=== PATIENT | female | born 1950 | race Two or more races ===

== ENCOUNTER → 2018-08-15 12:46 | Outpatient (CLI) | payer SELFPAY ==
[2018-08-15 13:03] VITALS: BP 150/66; PULSE 63; RESP 18; O2SAT 99; BMI 31.8
--- NOTE | 2018-08-15 13:16 | CT_ITS ---
STUDY: CT CHEST WITHOUT CONTRAST REASON FOR EXAM: Female, 68 years old. Element cholesterol, coronary calcium scoring, over read. RADIATION DOSAGE (If Supplied By Facility): CTDIvol = ( 12.19 ) mGy, DLP = ( 195.04 ) mGycm TECHNIQUE: Transaxial imaging was performed without the administration of intravenous contrast material. Individualized dose optimization techniques were used for this CT. COMPARISON: None. FINDINGS: Upper abdomen, body wall soft tissues, osseous structures exhibit no acute process. Chronic calcified lymph nodes of the mediastinum and fernanda are consistent with old granulomatous disease and concordant with small calcifications seen in the liver and spleen. A few calcified pulmonary nodules are present also consistent with old granulomatous disease. There are no suspicious pulmonary nodules. Normal airways. The heart is normal in size without pericardial effusion. Nondilated aorta. Nondilated central pulmonary arteries. The right and left coronary arteries each emerge from the appropriate coronary sinus with right coronary dominance to the PDA. RCA, no visible calcified plaque proximally, small focus in the middle segment. None distally. Left main, no plaque. Circumflex, no plaque. Marginal arteries no plaque. LAD, proximal to mid, multifocal calcified plaque. CT/Limited Chest CT w/CCTA IMPRESSION: No acute cardiopulmonary process. Normal coronary artery origins and branching anatomy. Small focus of calcified plaque mid RCA. Next line moderate plaque proximal to mid LAD. Coronary calcium Agatston score and recommendations are provided under separate cover with cardiology. Electronically Signed: Jordan Samano MD at 19:06 EST Tel , Service support ,
--- NOTE | 2018-08-16 06:50 | CA.SCORE ---
Calcium Scoring Date of Study:: 08/15/18 Coronary Calcium Scoring: Coronary calcium scoring. High-resolution computed tomographic imaging of the chest was performed on 08/15/2018 with particular attention paid to the coronary arteries. Images from the examination were analyzed for the presence and extent of coronary artery calcification using coronary calcification quantification software. The patient tolerated the procedure well there were no complications. The results of the coronary calcification analysis are provided below. Left main score is 0. Left anterior descending artery score 94.6. Left circumflex artery score 0. Right coronary artery score 3. Total Agagston score 97.8. The above places the patient between these 50th and 75th percentile ranking. This is suggestive of mild plaque burden This suggest likely mild or minimal coronary artery stenosis.
--- OUTSIDE RECORDS SUMMARY | 2018-11-16 17:54 | XMS RPT_ITS | Continuity of Care Document ---
:1950 Author Organization [facility] Address [facility] [address] [place] [address] Phone Care Team Providers Name Role Phone Rowan Mott MD Unavailable Hearing Services-- Cristy Colindres Unavailable Dr. Ehsan Recinos Unavailable [facility] Unavailable Alexander Joy Tawny Unavailable VALORIE Porras Unavailable Unavailable Unavailable Unavailable Problems Name Dates Details Abnormal cystoscopy (R39.9, 796.9) Comments: see Dr. Kruger and inflammed bladder and will rescope Dr. Coughlin 2-17 good cytology sent and recheck in 1 year. i told pt will do CT scna and send to ced she does not want to follow up if abn ormal will follow up with him Status: Active Abortions/Miscarriages Comments: 1 Status: Active Acute non-recurrent maxillary sinusitis (J01.00, 461.0) Status: Active Adult hypothyroidism (E03.9, 244.9) Status: Active Allergic rhinitis due to pollen, unspecified seasonality (J30.1, 477.0) Status: Active Allergic rhinitis, mild (J30.9, 477.9) Status: Active Anserine bursitis (M70.50, 726.61) Comments: left knee better than was talk about rest ice nsaids and if not better inject. Status: Active Bilateral hearing loss, unspecified hearing loss type (H91.93, 389.9) Comments: told in past by ENT that can be result of surgery and had when work up for vertigop Status: Active Bilateral renal cysts (N28.1, 753.10) Status: Active BMI 31.0-31.9,adult (Z68.31, V85.31) Status: Active BMI 32.0-32.9,adult (Z68.32, V85.32) Status: Active BMI 33.0-33.9,adult (Z68.33, V85.33) Comments: 33.0 Status: Active Bunion, right (M21.611, 727.1) Status: Active Current nonsmoker (Renamed from Current non-smoker) (Z78.9, V49.89) Status: Active Deliveries (Parity) Comments: 2 Status: Active Encounter for routine adult medical exam with abnormal findings (Z00.01, V70.0) Comments: 04-13 AMP 2-- [facility] exam: A1C=7.3%, BMI=31.4, mammogram=2017, BD=2-2017 great,immunizations are up to date, 6 CIT=, PHQ-9=4 (minimal) hep c screening=negative, per old records pap an d HPV 2016 negative, had total hysterectomy BSO, eyduxxnygke=7115 (normal), Burn's scale=22 (mild depression) see dentist and eye DrRaquel yearly Status: Active Epidermal cyst (L72.0, 706.2) Status: Active Fatigue due to exposure, subsequent encounter (T73.2XXD, V58.89) Status: Active Fatty liver (K76.0, 571.8) Status: Active History of asthma (Z87.09, V12.69) Comments: had bad asthma in [place] in winter and cold not have now. when move [place] better. was on singulair inhalers etc. Status: Active History of breast cancer in female (Z85.3, V10.3) Comments: 2 sisters needs genetic counselinand BRCA testing. lloyd end. Status: Active History of Graves' disease (Z86.39, V12.29) Status: Active Incontinence of urine (R32, 788.30) Comments: really think related to estrogen def. the estrogen cream work the but the detrol not help. right now not bad caffiene decrease help alot. right now stress Status: Active Memory loss (R41.3, 780.93) Comments: 6CIT= Status: Active Menopausal state (N95.1, 627.2) Status: Active Mild depression (F32.0, 311) Comments: ramirez 22 she notice in irriitablity. low stress tolerance. n past used zoloft andhelp. some seasonal came from [facility] and now cloudy all time. [place] chore. ta lkabout weight loss. wellbutrin helping irritable, sleep better, mood better, not as hungry Status: Active Mixed hyperlipidemia (E78.2, 272.2) Comments: will recheck Status: Active Need for prophylactic vaccination and inoculation against influenza (Renamed from Need for immunization against influenza) (Z23, V04.81) Status: Active Obesity (BMI 30-39.9) (278.00) Comments: likie 185. was as high as 240. lost since on wellbutrin. on trulicity loosing more Status: Active Other hypoparathyroidism (E20.8, 252.1) Status: Active Paresthesia of right foot (R20.2, 782.0) Comments: worse on right some on left. notice now not as much pain in feet ? why. Status: Active Postmenopausal (Renamed from Postmenopausal status) (Z78.0, V49.81) Status: Active Pregnancies () Comments: 3 Status: Active Renal insufficiency (N28.9, 593.9) Status: Active Restless leg (G25.81, 333.94) Comments: think related to stress ABN good not neuropatny signs and symptoms so will watch talk about ativan prn at night. 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 last MRI good 2013. will need further surgery for collapse of the septum bone. at this oint she is holding off. 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 nose implant Status: Active Syncope (R55, 780.2) Comments: multiple episodes, hospitalized twice for it hx. CT scan and no tumor Status: Active Type II diabetes mellitus (E11.9, 250.00) Comments: see Dr. Amaro endocrine and will stop. metformin bid. doing well on trulicity took awahile some constipation but working well.fall 17 eye exam Status: Active Vestibular migraine (G43.109, 346.00) Comments: present with vertigo. last time related to allergies when act up. had 5 episodes since 2004. work up in [facility]. not ear or menieries. MRI negative of brain. ENG negative. next step was neurology but better so not go. got [employer] shot and gone spring. Status: Active Vitamin B12 deficiency (E53.8, 266.2) Comments: was high so stoppe din past low Status: Active Medications Name Dates Details Aspirin 81 MG Oral Tablet Delayed Release Active 1 qd (81 MG) Biotin 2500 MCG Oral Capsule Active 1 every other day (2500 MCG) Calcitriol 0.25 MCG Oral Capsule uad Capsule 2 in am 1 pm for 0 days Quantity: 270 {Capsule} Refills: 3 Ordered:05-Mar-2018 Rowan Mott MD, MD, Dana M Start : 05-Mar-2018 Active Citracal Plus Oral Tablet 1 bid Active Fish Oil 1200 MG Oral Capsule 1 bid (1200 MG) Active Fosinopril Sodium 10 MG Oral Tablet 1 (one) Tablet in am for 0 days Quantity: 90 {Tablet} Refills: 3 Ordered:29-Dec-2017 Rowan Mott MD, MD, Dana M Start : 29-Dec-2017 Active Levothyroxine Sodium 112 MCG Oral Tablet 1 Tablet qd for 0 days Quantity: 90 {Tablet} Refills: 3 Ordered:08-Jan-2018 Rowan Mott MD, MD, Dana M Start : 08-Jan-2018 Active MetFORMIN HCl 500 MG Oral Tablet 1 Tablet bid for 0 days Quantity: 180 {Tablet} Refills: 3 Ordered:02-Oct-2017 Rowan Mott MD, MD, Dana M Start : 02-Oct-2017 Active Metoprolol Tartrate 50 MG Oral Tablet uad Tablet one at 6pm night before test and one @ 6am day of test for 0 days Quantity: 2 {Tablet} Refills: 0 Ordered:14-Aug-2018 Rowan Mott MD, MD, Dana M Start : 14-Aug-2018 Active Simvastatin 20 MG Oral Tablet 1 Tablet qd for 0 days Quantity: 90 {Tablet} Refills: 3 Ordered:12-Dec-2017 Rowan Mott MD, MD, Dana M Start : 12-Dec-2017 Active Tobramycin-Dexamethasone 0.3-0.1 % Ophthalmic Suspension 1 (one) Suspension Suspension 2 dropps in right eye every 6 hours. for 0 days Quantity: 1 {Bottle} Refills: 0 Ordered:02-Oct-2017 Rowan Mott MD, MD, Dana M Start : 02-Oct-2017 Active Trulicity 1.5 MG/0.5ML Subcutaneous Solution Pen-injector 1 (one) Milligram Milligram SC weekly for 90 days Refills: 3 Ordered:12-Dec-2017 VALORIE Porras Start : 12-Dec-2017 Active Vitamin B-12 1000 MCG Oral Tablet 1 exery other day (1000 MCG) Active Wellbutrin XL 150 MG Oral Tablet Extended Release 24 Hour 1 (one) Tablet ER 24HR in am for 0 days Quantity: 90 {Tablet} Refills: 3 Ordered:29-Dec-2017 Rowan Mott MD, MD, Dana M Start : 29-Dec-2017 Active Xyzal Allergy 24HR 5 MG Oral Tablet 1 (one) Tablet Tablet in am for 0 days Quantity: 30 {Tablet} Refills: 5 Ordered:25-May-2018 VALORIE Porras Start : 25-May-2018 Active Augmentin 875-125 MG Oral Tablet 1 (one) Tablet bid for 0 days Quantity: 20 {Tablet} Refills: 0 Ordered:25-May-2018 Nataliya Dixon Start : 10-Apr-2018 End : 25-May-2018 Inactive Ciprofloxacin HCl 500 MG Oral Tablet 1 (one) Tablet bid for 0 days Quantity: 28 {Tablet} Refills: 0 Ordered:12-Mar-2018 VALORIE Porras Start : 13-Feb-2018 End : 12-Mar-2018 Inactive MetFORMIN HCl 500 MG Oral Tablet 1 (one) Tablet bid with meals for 0 days Quantity: 60 {Tablet} Refills: 6 Ordered:13-Feb-2018 VALORIE Porras Start : 12-Dec-2017 End : 13-Feb-2018 Inactive Pyridium 200 MG Oral Tablet 1 (one) Tablet Tablet bid for 0 days Quantity: 20 {Tablet} Refills: 0 Ordered:02-Oct-2017 VALORIE Porras Start : 03-Apr-2017 End : 02-Oct-2017 Inactive Trulicity 0.75 MG/0.5ML Subcutaneous Solution Pen-injector 1 (one) Milligram SC weekly for 2 weeks for 0 days Quantity: 2 Kit Refills: 0 Ordered:13-Feb-2018 VALROIE Porras Start : 12-Dec-2017 End : 13-Feb-2018 Inactive Glimepiride 1 MG Oral Tablet 1 Tablet qhs for 0 days Quantity: 90 {Tablet} Refills: 3 Ordered:12-Dec-2016 Rowan Mott MD, MD, Dana M Start : 12-Dec-2016 End : 12-Dec-2016 Discontinued Janumet 50-500 MG Oral Tablet 1 Tablet bid for 0 days Quantity: 180 {Tablet} Refills: 3 Ordered:12-Dec-2017 [facility], Rowan Recio MD Start : 12-Dec-2017 End : 12-Dec-2017 Discontinued Singulair 10 MG Oral Tablet 1 (one) Tablet in am for 0 days Quantity: 30 {Tablet} Refills: 5 Ordered:14-Jun-2018 Rowan Mott MD, MD, Dana M Start : 14-Jun-2018 End : 14-Jun-2018 Discontinued Allergies and Adverse Reactions Name Dates Details Inapsine *ANTIANXIETY AGENTS* (Allergy) Status: Active Naprosyn *ANALGESICS - ANTI-INFLAMMATORY* (Allergy) Status: Active SulfADIAZINE *Sulfonamides (Allergy) Status: Active Past Medical History Name Dates Details Abnormal blood creatinine level (R79.9, 790.99) Status: Resolved as of 12-Mar-2018 Actinic keratosis (Renamed from Keratosis, actinic) (L57.0, 702.0) Comments: on right spiritism area Status: Resolved as of 12-Dec-2017 Acute cystitis without hematuria (N30.00, 595.0) Status: Inactive as of 14-Nov-2016 Adnexal mass (N94.9, 625.8) Comments: Dr forbes [facility] good. Status: Resolved as of 12-Dec-2017 Dysuria (R30.0, 788.1) Status: Resolved as of 12-Mar-2018 Elevated uric acid in blood (E79.0, 790.6) Comments: better now Status: Resolved as of 02-Oct-2017 Encounter for hepatitis C virus screening test for high risk patient (Z11.59, V73.89) Status: Resolved as of 18-Sep-2017 Flank pain (R10.9, 789.09) Comments: left side beter now CT scan 09-13 showed stone. had bout in 04-13 adn better now. told alot water. then fall 2016 back gain. is to follow up with urology and will recheck CT scan she wants to wait until after trip in october. better than was so wants to hold off. if worsen will get right away. will get ctscan when get home and not follow up with uro unless abnormla. Status: Resolved as of 12-Dec-2017 Graves disease (E05.00, 242.00) Comments: developed goiter, then thyroidectomy Status: Inactive as of 14-Nov-2016 INFLAMED SEBORRHEIC KERATOSIS (L82.0, 702.11) Status: Resolved as of 18-Sep-2017 Redness of eye, right (H57.89, 379.93) Comments: ? scratch sclera. ? allergies. not seem like glaucoma not have corneal abrasion. no signs and symptoms of herpes. nothing seen in eye with rosen lamp Status: Resolved as of 18-Sep-2017 Screening mammogram, encounter for (Z12.31, V76.12) Status: Resolved as of 18-Sep-2017 UTI (urinary tract infection) (N39.0, 599.0) Status: Resolved as of 12-Dec-2017 Procedures Procedure Dates Details Annual Eye Exam Completed Comments: wears glasses May 2016 Bone Density Study Completed Comments: 2014 Cholecystectomy Completed Colonoscopy, Screening Completed Comments: 2014 Hysterectomy; Total Completed Comments: 1989 supposed to be a total, but ovary later found with a growth on it (June 2016), removed ovary with tumor and was benign Mammogram, Screening Completed Comments: July 2015 Nose transplant Completed Comments: 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 cardiac disease, yellow jaundice Status: Active Maternal Grandfather Comments: asthma, CHF Status: Active Maternal Grandmother Comments: ?DM, stroke, CHF Status: Active Mother Comments: Kidney Cancer, Type II diabetes, HTN, hx. heart valve replacement, macular degeneration, sick sinus syndrome (still living in her 90's) Status: Active Paternal Grandfather Comments: had TB Status: Active Paternal Grandmother Comments: thyroid disease, Rickett's, bone problems Status: Active Sister 1 Comments: healthy Status: Active Sister 2 Comments: Type II diabetes, HTN, multiple allergies Status: Active Sister 3 Comments: former Ms. Mak Gluten allergy Status: Active Sister 4 Comments: Breast cancer Status: Active Sister 5 Comments: numerous joint problems (bad knees/back) Breast Cancer Status: Active Social History Name Dates Details Alcohol Use: Occasional alcohol use. 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 Comments: walk daily about 20 minutes. Status: Active Living Situation Comments: lives with spouse Christian-important Status: Active No Drug Use Status: Active Tobacco Use: Never smoker. Status: Active Smoking Status Name Dates Details Never smoker Vital Signs Date Test Result Details :28 Temperature 97.9 f Comments: Method: Temporal Pulse 74 /min Comments: Pattern: Regular Respiration Rate 20 /min Comments: Pattern: Unlabored O2 SAT 98 % Comments: Room air BP Systolic 126 mm[Hg] Comments: Patient Position: Sitting; Cuff Location: Left Arm; Cuff Size: Standard BP Diastolic 76 mm[Hg] Comments: Patient Position: Sitting; Cuff Location: Left Arm; Cuff Size: Standard Weight 199 lb Height 65.5 in Body Mass Index Calculated 32.61 kg/m2 Body Surface Area Calculated 1.99 m2 :55 Temperature 98.4 f Comments: Method: Temporal Pulse 80 /min Comments: Pattern: Regular Respiration Rate 16 /min Comments: Pattern: Unlabored O2 SAT 98 % Comments: Room air BP Systolic 122 mm[Hg] Comments: Patient Position: Sitting; Cuff Location: Left Arm; Cuff Size: Standard BP Diastolic 78 mm[Hg] Comments: Patient Position: Sitting; Cuff Location: Left Arm; Cuff Size: Standard Weight 193 lb Height 65.5 in Body Mass Index Calculated 31.63 kg/m2 Body Surface Area Calculated 1.96 m2 :58 Temperature 97.6 f Comments: Method: Temporal Pulse 74 /min Comments: Pattern: Regular Respiration Rate 20 /min Comments: Pattern: Unlabored O2 SAT 98 % Comments: Room air BP Systolic 124 mm[Hg] Comments: Patient Position: Sitting; Cuff Location: Left Arm; Cuff Size: Standard BP Diastolic 78 mm[Hg] Comments: Patient Position: Sitting; Cuff Location: Left Arm; Cuff Size: Standard Weight 193 lb Height 65.5 in Body Mass Index Calculated 31.63 kg/m2 Body Surface Area Calculated 1.96 m2 :07 Temperature 97.9 f Comments: Method: Temporal Pulse 78 /min Comments: Pattern: Regular Respiration Rate 18 /min Comments: Pattern: Unlabored O2 SAT 98 % Comments: Room air BP Systolic 120 mm[Hg] Comments: Patient Position: Sitting; Cuff Location: Left Arm; Cuff Size: Large BP Diastolic 80 mm[Hg] Comments: Patient Position: Sitting; Cuff Location: Left Arm; Cuff Size: Large Weight 204.05 lb Height 65.5 in Body Mass Index Calculated 33.44 kg/m2 Body Surface Area Calculated 2.01 m2 :30 Temperature 97.8 f Comments: Method: Temporal Pulse 78 /min Comments: Pattern: Regular Respiration Rate 20 /min Comments: Pattern: Unlabored O2 SAT 97 % Comments: Room air BP Systolic 118 mm[Hg] Comments: Patient Position: Sitting; Cuff Location: Left Arm; Cuff Size: Standard BP Diastolic 68 mm[Hg] Comments: Patient Position: Sitting; Cuff Location: Left Arm; Cuff Size: Standard Weight 191.025 lb Height 65.5 in Body Mass Index Calculated 31.3 kg/m2 Body Surface Area Calculated 1.95 m2 :57 Pulse 86 /min Comments: Pattern: Regular Respiration Rate 18 /min Comments: Pattern: Unlabored O2 SAT 98 % Comments: Room air BP Systolic 120 mm[Hg] Comments: Patient Position: Sitting; Cuff Location: Left Arm; Cuff Size: Standard BP Diastolic 62 mm[Hg] Comments: Patient Position: Sitting; Cuff Location: Left Arm; Cuff Size: Standard Weight 200 lb Height 66 in Body Mass Index Calculated 32.28 kg/m2 Body Surface Area Calculated 2 m2 :47 Comments: vision in right eye 20/50 without glasses and 20/20 with glaseses Temperature 97.5 f Comments: Method: Temporal Pulse 80 /min Comments: Pattern: Regular Respiration Rate 20 /min Comments: Pattern: Unlabored O2 SAT 97 % Comments: Room air BP Systolic 122 mm[Hg] Comments: Patient Position: Sitting; Cuff Location: Left Arm; Cuff Size: Large BP Diastolic 80 mm[Hg] Comments: Patient Position: Sitting; Cuff Location: Left Arm; Cuff Size: Large Weight 205 lb Height 66 in Body Mass Index Calculated 33.09 kg/m2 Body Surface Area Calculated 2.02 m2 :04 Temperature 97.9 f Comments: Method: Temporal Pulse 80 /min Comments: Pattern: Regular Respiration Rate 20 /min Comments: Pattern: Unlabored O2 SAT 98 % Comments: Room air BP Systolic 120 mm[Hg] Comments: Patient Position: Sitting; Cuff Location: Left Arm; Cuff Size: Large BP Diastolic 80 mm[Hg] Comments: Patient Position: Sitting; Cuff Location: Left Arm; Cuff Size: Large Weight 205 lb Height 66 in Body Mass Index Calculated 33.09 kg/m2 Body Surface Area Calculated 2.02 m2 :00 Temperature 97.9 f Comments: Method: Temporal Pulse 72 /min Comments: Pattern: Regular Respiration Rate 20 /min Comments: Pattern: Unlabored O2 SAT 99 % Comments: Room air BP Systolic 120 mm[Hg] Comments: Patient Position: Sitting; Cuff Location: Left Arm; Cuff Size: Large BP Diastolic 78 mm[Hg] Comments: Patient Position: Sitting; Cuff Location: Left Arm; Cuff Size: Large Weight 204 lb Height 66 in Body Mass Index Calculated 32.93 kg/m2 Body Surface Area Calculated 2.02 m2 :31 Temperature 97.6 f Comments: Method: Temporal Pulse 64 /min Comments: Pattern: Regular Respiration Rate 20 /min Comments: Pattern: Unlabored O2 SAT 98 % Comments: Room air BP Systolic 136 mm[Hg] Comments: Patient Position: Sitting; Cuff Location: Left Arm; Cuff Size: Large BP Diastolic 78 mm[Hg] Comments: Patient Position: Sitting; Cuff Location: Left Arm; Cuff Size: Large Weight 208 lb Height 66 in Body Mass Index Calculated 33.57 kg/m2 Body Surface Area Calculated 2.03 m2 :04 Temperature 97.6 f Comments: Method: Temporal Pulse 78 /min Comments: Pattern: Regular Respiration Rate 20 /min Comments: Pattern: Unlabored O2 SAT 98 % Comments: Room air BP Systolic 142 mm[Hg] Comments: Patient Position: Sitting; Cuff Location: Left Arm; Cuff Size: Standard BP Diastolic 84 mm[Hg] Comments: Patient Position: Sitting; Cuff Location: Left Arm; Cuff Size: Standard Weight 202 lb Height 66 in Body Mass Index Calculated 32.6 kg/m2 Body Surface Area Calculated 2.01 m2 Results Date Description Value Details [id number]-[id number] HgA1C , Office (71695) HgA1C , Office 6.6 % (Normal) Range: 4.6 - 7.1 54-Vks-613226:36 EBV Panel (71541) Comments: PATIENT NOT FASTINGPERFORMED BY: [facility] [id number] Interpretation: SPRCS (Normal) Comments: EBV Interpretation Chart . Interpretation EBV-IgM EA(D)-IgG VCA-IgG EBNA-IgG . EBV Seronegative - - - - Early Phase + - - - Acute Primary + +or- + - Infection Convalescence/Past - +or- + + Infection Reactivated +or- + + + Infection + Antibody Present - Antibody Absent EBV Nuclear Antigen Ab, IgG >600.0 U/mL (Abnormal) Range: 0.0-17.9 Comments: Negative <18.0 Equivocal 18.0 - 21.9 Positive >21.9 EBV Ab VCA, IgG 120.0 U/mL (Abnormal) Range: 0.0-17.9 Comments: Negative <18.0 Equivocal 18.0 - 21.9 Positive >21.9 EBV Early Antigen Ab, IgG <9.0 U/mL (Normal) Range: 0.0-8.9 Comments: Negative < 9.0 Equivocal 9.0 - 10.9 Positive >10.9 EBV Ab VCA, IgM <36.0 U/mL (Normal) Range: 0.0-35.9 Comments: Negative <36.0 Equivocal 36.0 - 43.9 Positive >43.9 :36 CBC (AUTO) ([id number]) Comments: PATIENT NOT FASTINGPERFORMED BY: [facility] [place] [id number] Platelets 228 {x10E3/uL} (Normal) Range: 150-379 RDW 15.7 % (Abnormal) Range: 12.3-15.4 MCHC 33.7 g/dL (Normal) Range: 31.5-35.7 MCH 28.8 pg (Normal) Range: 26.6-33.0 MCV 86 fL (Normal) Range: 79-97 Hematocrit 35.3 % (Normal) Range: 34.0-46.6 Hemoglobin 11.9 g/dL (Normal) Range: 11.1-15.9 RBC 4.13 {x10E6/uL} (Normal) Range: 3.77-5.28 WBC 7.3 {x10E3/uL} (Normal) Range: 3.4-10.8 22-Fls-244442:36 METABOLIC PANEL, COMPREHENSIVE Comments: PATIENT NOT FASTINGPERFORMED BY: [id number] [facility] [id number] ([id number]) ALT (SGPT) 34 [iU]/L (Abnormal) Range: 0-32 AST (SGOT) 41 [iU]/L (Abnormal) Range: 0-40 Alkaline Phosphatase 57 [iU]/L (Normal) Range: 39-117 Bilirubin, Total 0.3 mg/dL (Normal) Range: 0.0-1.2 A/G Ratio 1.9 (Normal) Range: 1.2-2.2 Globulin, Total 2.3 g/dL (Normal) Range: 1.5-4.5 Albumin 4.3 g/dL (Normal) Range: 3.6-4.8 Protein, Total 6.6 g/dL (Normal) Range: 6.0-8.5 Calcium 9.3 mg/dL (Normal) Range: 8.7-10.3 Carbon Dioxide, Total 25 mmol/L (Normal) Range: 20-29 Chloride 103 mmol/L (Normal) Range: 96-106 Potassium 3.9 mmol/L (Normal) Range: 3.5-5.2 Sodium 145 mmol/L (Abnormal) Range: 134-144 BUN/Creatinine Ratio 15 (Normal) Range: 12-28 eGFR If Africn Am 56 mL/min/1.73 (Abnormal) eGFR If NonAfricn Am 49 mL/min/1.73 (Abnormal) Creatinine 1.15 mg/dL (Abnormal) Range: 0.57-1.00 BUN 17 mg/dL (Normal) Range: 8-27 Glucose 130 mg/dL (Abnormal) Range: 65-99 47-Sam-010806:36 Folate (39726) Comments: PATIENT NOT FASTINGPERFORMED BY: [facility] [id number] [facility] [place] [id number] Folate (Folic Acid), Serum >20.0 ng/mL (Normal) Comments: A serum folate concentration of less than 3.1 ng/mL isconsidered to represent clinical deficiency. [id number] VITAMIN B-12 (CYANOCOBALAMIN) Comments: PATIENT NOT FASTINGPERFORMED BY: [facility] [id number] [facility] [place] [id number] ([id number]) Vitamin B12 >2000 pg/mL (Abnormal) Range: 232-1245 58-Dbw-313665:36 SED RATE ERYTHROCYTE (39070) Comments: PATIENT NOT FASTINGPERFORMED BY: [facility] [id number] [facility] [id number] Sedimentation Rate-Westergren 2 mm/h (Normal) Range: 0-40 56-Lwk-322087:36 TSH (85577) Comments: PATIENT NOT FASTINGPERFORMED BY: [facility] [id number] [facility] [id number] TSH 1.230 {uIU/mL} (Normal) Range: 0.450-4.500 77-Ymk-880574:34 HgA1C , Office (32315) HgA1C , Office 6.7 % (Normal) Range: 4.6 - 7.1 28-Mdu-171218:40 Microscopic Examination Comments: PATIENT NOT FASTINGPERFORMED BY: [facility] [id number] [facility] [place] [id number] Bacteria Few (Normal) Mucus Threads Present (Normal) Cast Type Hyaline casts (Normal) Casts Present {/lpf} (Abnormal) Epithelial Cells (non renal) 0-10 {/hpf} (Normal) Range: 0 - 10 RBC None seen {/hpf} (Normal) Range: 0 - 2 WBC 0-5 {/hpf} (Normal) Range: 0 - 5 88-Kfg-[id number]:50 Urinalysis, Office (07640) UA - LEUKOCYTE ESTERASE Trace (Normal) UA - NITRITE Negative (Normal) URINE UROBILINGN LINDSEY TIMED 2 mg/dL (Normal) UA - PROTEIN Negative mg/dL (Normal) UA - PH 8.0 (Normal) UA - BLOOD Hemolyzed Trace (Normal) UA - SPECIFIC GRAVITY 1.015 (Normal) UA - KETONES Negative mg/dL (Normal) UA - BILIRUBIN Negative (Normal) UA - GLUCOSE Negative (Normal) 86-Yma-[id number]:40 URINE ELIN CULTURE-IDENTIFICATN Comments: PATIENT NOT FASTINGPERFORMED BY: [email or web address] [id number] ([id number]) Result 1 MUG (Normal) Comments: Mixed urogenital flora1,000 Colonies/mL Urine Culture,Comprehensive Final report (Normal) 52-Hem-682546:40 URINALYSIS (29042) Comments: PATIENT NOT FASTINGPERFORMED BY: [email or web address] [facility] [id number] Information: SRC: Microscopic Examination See below: (Normal) Comments: Microscopic was indicated and was performed. Nitrite, Urine Negative (Normal) Urobilinogen,Semi-Qn 0.2 mg/dL (Normal) Range: 0.2-1.0 Bilirubin Negative (Normal) Occult Blood Negative (Normal) Ketones Negative (Normal) Glucose Negative (Normal) Protein Negative (Normal) WBC Esterase Trace (Abnormal) Appearance Clear (Normal) Urine-Color Yellow (Normal) pH 8.0 (Abnormal) Range: 5.0-7.5 Specific Carroll 1.008 (Normal) Range: 1.005-1.030 63-Nir-881741:21 URINE ELIN CULTURE-IDENTIFICATN Comments: PATIENT NOT FASTINGPERFORMED BY: [employer] Besrmw6462 [facility] [id number] Information: SRC: (74214) Result 1 MUG (Normal) Comments: Mixed urogenital flora10,000-25,000 colony forming units per mL Urine Final report (Normal) Culture,Comprehensive 89-Bxb-165262:14 Urinalysis, Office (75042) UA - LEUKOCYTE ESTERASE Trace (Normal) UA - NITRITE Negative (Normal) URINE UROBILINGN LINDSEY TIMED 2 mg/dL (Normal) UA - PROTEIN Negative mg/dL (Normal) UA - PH 6.0 (Normal) UA - BLOOD Hemolyzed Trace (Normal) UA - SPECIFIC GRAVITY 1.025 (Normal) UA - KETONES Negative mg/dL (Normal) UA - BILIRUBIN Negative (Normal) UA - GLUCOSE Negative (Normal) 51-Krg-660213:13 HgA1C , Office (67415) HgA1C , Office 6.8 % (Normal) Range: 4.6 - 7.1 98-Xsv-457802:34 VITAMIN B-12 (CYANOCOBALAMIN) Comments: PATIENT NOT FASTINGPERFORMED BY: [facility] [id number] (73637) Vitamin B12 1547 pg/mL (Abnormal) Range: 232-1245 15-Iuh-138729:34 Metabolic Panel, Comprehensive Comments: PATIENT NOT FASTINGPERFORMED BY: [employer]70 Lotour.comCarolinas [facility] [id number] (03757) ALT (SGPT) 26 [iU]/L (Normal) Range: 0-32 AST (SGOT) 29 [iU]/L (Normal) Range: 0-40 Alkaline Phosphatase, S 60 [iU]/L (Normal) Range: 39-117 Bilirubin, Total 0.3 mg/dL (Normal) Range: 0.0-1.2 A/G Ratio 2.0 (Normal) Range: 1.2-2.2 Globulin, Total 2.1 g/dL (Normal) Range: 1.5-4.5 Albumin, Serum 4.1 g/dL (Normal) Range: 3.6-4.8 Protein, Total, Serum 6.2 g/dL (Normal) Range: 6.0-8.5 Calcium, Serum 10.1 mg/dL (Normal) Range: 8.7-10.3 Carbon Dioxide, Total 24 mmol/L (Normal) Range: 18-29 Chloride, Serum 103 mmol/L (Normal) Range: 96-106 Potassium, Serum 4.2 mmol/L (Normal) Range: 3.5-5.2 Sodium, Serum 147 mmol/L (Abnormal) Range: 134-144 BUN/Creatinine Ratio 13 (Normal) Range: 12-28 eGFR If Africn Am 49 mL/min/1.73 (Abnormal) eGFR If NonAfricn Am 43 mL/min/1.73 (Abnormal) Creatinine, Serum 1.30 mg/dL (Abnormal) Range: 0.57-1.00 BUN 17 mg/dL (Normal) Range: 8-27 Glucose, Serum 131 mg/dL (Abnormal) Range: 65-99 40-Dzj-552119:34 CBC WITH MANUAL DIFF Comments: PATIENT NOT FASTINGPERFORMED BY: LabCoSaint Clare's Hospital at DoverTeisgd9563 [facility] [id number] Information: NURSE DRAW (32387) Immature Grans (Abs) 0.0 {x10E3/uL} (Normal) Range: 0.0-0.1 Immature Granulocytes 0 % (Normal) Baso (Absolute) 0.1 {x10E3/uL} (Normal) Range: 0.0-0.2 Eos (Absolute) 0.8 {x10E3/uL} (Abnormal) Range: 0.0-0.4 Monocytes(Absolute) 0.4 {x10E3/uL} (Normal) Range: 0.1-0.9 Lymphs (Absolute) 2.0 {x10E3/uL} (Normal) Range: 0.7-3.1 Neutrophils (Absolute) 4.7 {x10E3/uL} (Normal) Range: 1.4-7.0 Basos 1 % (Normal) Eos 10 % (Normal) Monocytes 5 % (Normal) Lymphs 25 % (Normal) Neutrophils 59 % (Normal) Platelets 229 {x10E3/uL} (Normal) Range: 150-379 RDW 16.1 % (Abnormal) Range: 12.3-15.4 MCHC 33.3 g/dL (Normal) Range: 31.5-35.7 MCH 28.7 pg (Normal) Range: 26.6-33.0 MCV 86 fL (Normal) Range: 79-97 Hematocrit 37.5 % (Normal) Range: 34.0-46.6 Hemoglobin 12.5 g/dL (Normal) Range: 11.1-15.9 RBC 4.36 {x10E6/uL} (Normal) Range: 3.77-5.28 WBC 8.0 {x10E3/uL} (Normal) Range: 3.4-10.8 01-Jal-353012:34 PARATHORMONE (66441) Comments: PATIENT NOT FASTINGPERFORMED BY: ROMAIN [employer] Kwzjca5086 [facility] [id number]; fu 2-5-18 DB PTH, Intact 9 pg/mL (Abnormal) Range: 15-65 53-Evd-147232:10 URINE ELIN CULTURE-IDENTIFICATN Comments: PATIENT NOT FASTINGPERFORMED BY: [employer] Vpescf3511 [facility] [id number] (89427) Result 1 BETAGG (Abnormal) Comments: Beta hemolytic Streptococcus, group G5,000 Colonies/mLPenicillin and ampicillin are drugs of choice for treatment ofbeta- hemolytic streptococcal infections. Susceptibility testing ofpenicillins and oth er beta-lactam agents approved by the FDA fortreatment of beta-hemolytic streptococcal infections need not beperformed routinely because nonsusceptible isolates are extremelyrare in any beta-hemolytic s treptococcus and have not been reportedfor Streptococcus pyogenes (group A). (CLSI 2011)Mixed urogenital flora2,000 Colonies/mL Urine Final report (Abnormal) Culture,Comprehensive 04-Wnc-786226:10 MICROALBUMIN: CREATININE RATIO Comments: PATIENT NOT FASTINGPERFORMED BY: ROMAIN [employer] Vxhdxf5340 [facility] [id number] (69793) AND (69033) Alb/Creat Ratio 21.8 {mg/g_creat} (Normal) Range: 0.0-30.0 Albumin, Urine 17.5 ug/mL (Normal) Creatinine, Urine 80.4 mg/dL (Normal) 18-Vnp-399097:10 URINALYSIS (24384) Comments: PATIENT NOT FASTINGPERFORMED BY: [facility] SystemsMiss[facility] Center Rrnmuy3433 [facility] [id number] Information: SRC:UC Microscopic Examination MICNIP (Normal) Comments: Microscopic not indicated and not performed. Nitrite, Urine Negative (Normal) Urobilinogen,Semi-Qn 0.2 mg/dL (Normal) Range: 0.2-1.0 Bilirubin Negative (Normal) Occult Blood Negative (Normal) Ketones Negative (Normal) Glucose Negative (Normal) Protein Negative (Normal) WBC Esterase Negative (Normal) Appearance Clear (Normal) Urine-Color Yellow (Normal) pH 7.0 (Normal) Range: 5.0-7.5 Specific Carroll 1.016 (Normal) Range: 1.005-1.030 69-Tst-426310:04 URINE ELIN CULTURE-IDENTIFICATN Comments: PATIENT WAS FASTINGPERFORMED BY: [employer] [id number] BY: Red e Appox RoadNovant Health/Nhrmcin [place] [id number] (22875) Result 1 NG36 (Normal) Comments: No growth in 36 - 48 hours. Urine Culture,Comprehensive Final report (Normal) 93-Bvf-803636:54 Urinalysis, Office (21459) UA - LEUKOCYTE ESTERASE Trace (Normal) UA - NITRITE Negative (Normal) URINE UROBILINGN LINDSEY TIMED Normal mg/dL (Normal) UA - PROTEIN Negative mg/dL (Normal) UA - PH 6.5 (Normal) UA - BLOOD non-hemolyzed trace (Normal) UA - SPECIFIC GRAVITY 1.010 (Normal) UA - KETONES Negative mg/dL (Normal) UA - BILIRUBIN Negative (Normal) UA - GLUCOSE Negative (Normal) 31-Svf-639079:04 PARATHORMONE (59151) Comments: PATIENT WAS FASTINGPERFORMED BY: [employer] [id number] BY: Red e Appox RoadZefanclubblin [place] [id number] PTH, Intact 9 pg/mL (Abnormal) Range: 15-65 22-Wao-209754:04 Vitamin B-12 Comments: PATIENT WAS FASTINGPERFORMED BY: [employer] [id number] BY: [employer]70 Lopez [employer] (powering InternMatch)bl[place] [id number] (cyanocobalamin) (10875) Vitamin B12 1770 pg/mL (Abnormal) Range: 211-946 11-Pbx-620500:04 METABOLIC PANEL, Comments: PATIENT WAS FASTINGPERFORMED BY: [employer] [id number] BY: [employer] Systemslin6370 [facility] [id number] COMPREHENSIVE (11767) ALT (SGPT) 27 [iU]/L (Normal) Range: 0-32 AST (SGOT) 31 [iU]/L (Normal) Range: 0-40 Alkaline Phosphatase, S 55 [iU]/L (Normal) Range: 39-117 Bilirubin, Total 0.4 mg/dL (Normal) Range: 0.0-1.2 A/G Ratio 2.0 (Normal) Range: 1.2-2.2 Globulin, Total 2.3 g/dL (Normal) Range: 1.5-4.5 Albumin, Serum 4.6 g/dL (Normal) Range: 3.6-4.8 Protein, Total, Serum 6.9 g/dL (Normal) Range: 6.0-8.5 Calcium, Serum 10.0 mg/dL (Normal) Range: 8.7-10.3 Carbon Dioxide, Total 22 mmol/L (Normal) Range: 18-29 Chloride, Serum 98 mmol/L (Normal) Range: 96-106 Potassium, Serum 4.4 mmol/L (Normal) Range: 3.5-5.2 Sodium, Serum 142 mmol/L (Normal) Range: 134-144 BUN/Creatinine Ratio 16 (Normal) Range: 12-28 eGFR If Africn Am 49 mL/min/1.73 (Abnormal) eGFR If NonAfricn Am 43 mL/min/1.73 (Abnormal) Creatinine, Serum 1.30 mg/dL (Abnormal) Range: 0.57-1.00 BUN 21 mg/dL (Normal) Range: 8-27 Glucose, Serum 108 mg/dL (Abnormal) Range: 65-99 33-Gaq-383534:04 LIPOPROTEIN, BLD, BY NMR Comments: PATIENT WAS FASTINGPERFORMED BY: LabBab[employer] [id number] BY: A[employer] InternationalSaint Clare's Hospital at DoverEndmtu6130 [facility] [id number] Information: SRC:DANGELO (62475) LP-IR Score 57 (Abnormal) Comments: INSULIN RESISTANCE MARKER <--Insulin Sensitive Insulin Resistant--> Percentile in Reference PopulationInsulin Resistance ScoreLP-IR Score Low 25th 50th 75th High <27 27 45 63 >63LP-IR Score is inaccurate if patient is non-fasting. .The LP-IR score is a laboratory developed i [facility] that has beenassociated with insulin resistance and diabetes risk and should beused as one component of a physician's clinical assessment. TheLP-IR score listed above has not been cleared by the [place] Food andDrug Administration. LDL Size 20.1 nm (Normal) Comments: INTERPRETATIVE INFORMATION PARTICLE CONCENTRATION AND SIZE <--Lower CVD Risk Highe r CVD Risk--> LDL AND HDL PARTICLES Percentile in Reference Population HDL-P (total) High 75th 50th 25th Low >34.9 34.9 30.5 26.7 <26.7 . Small LDL-P Low 25th 50th 75th High <117 117 527 839 >839 . LDL Size <-Large (Pattern A)-> <-Small (Pattern B)-> 23.0 20.6 20.5 19.0 Small LDL-P and LDL Size are associated with CVD risk, but not afterLDL-P is taken into account. .These assays were developed and their performance characteristicsdetermined by [employer]. These assays have not been cleared by [place] Food and Drug Administration. The clinical utility of theselaboratory values have not been fully established. Small LDL-P 797 nmol/L (Abnormal) HDL-P (Total) 35.4 umol/L (Normal) Cholesterol, Total 160 mg/dL (Normal) Range: 100-199 Triglycerides 157 mg/dL (Abnormal) Range: 0-149 HDL-C 46 mg/dL (Normal) LDL-C 83 mg/dL (Normal) Range: 0-99 Comments: . Optimal < 100 Above optimal 100 - 129 Borderline 1 30 - 159 High 160 - 189 Very high > 189 .LDL-C is inaccurate if patient is non-fasting. LDL-P 1289 nmol/L (Abnormal) Comments: Low < 1000 Moderate 1000 - 1299 Borderline-High 1300 - 1599 High 1600 - 2000 Very High > 2000 74-Jbj-932709:04 CBC with auto diff Comments: PATIENT WAS FASTINGPERFORMED BY: BN [facility] Bjkiidrucg7541 [facility] [id number] BY: CB [facility] Pgskvw0769 [facility] [id number] (49895) Immature Grans (Abs) 0.0 {x10E3/uL} (Normal) Range: 0.0-0.1 Immature Granulocytes 0 % (Normal) Baso (Absolute) 0.1 {x10E3/uL} (Normal) Range: 0.0-0.2 Eos (Absolute) 0.4 {x10E3/uL} (Normal) Range: 0.0-0.4 Monocytes(Absolute) 0.5 {x10E3/uL} (Normal) Range: 0.1-0.9 Lymphs (Absolute) 2.1 {x10E3/uL} (Normal) Range: 0.7-3.1 Neutrophils (Absolute) 4.5 {x10E3/uL} (Normal) Range: 1.4-7.0 Basos 1 % (Normal) Eos 5 % (Normal) Monocytes 6 % (Normal) Lymphs 28 % (Normal) Neutrophils 60 % (Normal) Platelets 239 {x10E3/uL} (Normal) Range: 150-379 RDW 15.4 % (Normal) Range: 12.3-15.4 MCHC 32.7 g/dL (Normal) Range: 31.5-35.7 MCH 27.8 pg (Normal) Range: 26.6-33.0 MCV 85 fL (Normal) Range: 79-97 Hematocrit 39.1 % (Normal) Range: 34.0-46.6 Hemoglobin 12.8 g/dL (Normal) Range: 11.1-15.9 RBC 4.61 {x10E6/uL} (Normal) Range: 3.77-5.28 WBC 7.6 {x10E3/uL} (Normal) Range: 3.4-10.8 16-Oty-626559:04 TSH (78499) Comments: PATIENT WAS FASTINGPERFORMED BY: [employer] [id number] BY: LabCoSaint Clare's Hospital at DoverLtcnyw6212 [facility] [id number] TSH 2.110 {uIU/mL} (Normal) Range: 0.450-4.500 57-Tjq-356377:15 HgA1C , Office (74627) HgA1C , Office 6.9 % (Normal) Range: 4.6 - 7.1 06-Qyk-475059:30 CREATININE BLOOD (01107) Comments: PATIENT NOT FASTINGPERFORMED BY: LabBablicSaint Clare's Hospital at DoverSvrxpp2852 [facility] [id number] BY: [employer] [id number] eGFR If Africn Am 58 mL/min/1.73 (Abnormal) eGFR If NonAfricn Am 50 mL/min/1.73 (Abnormal) Creatinine, Serum 1.14 mg/dL (Abnormal) Range: 0.57-1.00 11-Fhu-200454:30 Magnesium (74490) Comments: PATIENT NOT FASTINGPERFORMED BY: Vir[employer] SystemsJennifer Ville 3623570 [facility] [id number] BY: [employer] [id number] Magnesium, Serum 1.9 mg/dL (Normal) Range: 1.6-2.3 38-Syq-352640:30 TSH (39854) Comments: PATIENT NOT FASTINGPERFORMED BY: LabJennifer Ville 3623570 [facility] [id number] BY: [employer] [id number] TSH 1.950 {uIU/mL} (Normal) Range: 0.450-4.500 94-Muk-455039:30 Uric Acid Blood (93992) Comments: PATIENT NOT FASTINGPERFORMED BY: LabMiss[facility] Tqguwe0050 [facility] [id number] BY: [address] [id number] Uric Acid, Serum 8.3 mg/dL (Abnormal) Range: 2.5-7.1 Comments: Therapeutic target for gout patients: <6.0 31-Ruq-781407:30 Methymalonic Acid, Serum Comments: PATIENT NOT FASTINGPERFORMED BY: Vir[employer] SystemsBeaumont Hospital6370 [facility] [id number] BY: [address] [id number] (47409) Methylmalonic Acid, Serum 157 nmol/L (Normal) Range: 0-378 95-Eom-123098:30 Vitamin B-12 Comments: PATIENT NOT FASTINGPERFORMED BY: [facility] Ufawni4127 [facility] [id number] BY: Lab[address] [id number] (cyanocobalamin) (60360) Vitamin B12 1956 pg/mL (Abnormal) Range: 211-946 55-Otg-501931:00 Cytology, Body Fluid / CSF Comments: Spec[facility] Jrfl[address]rfzo[address] [place], [place], [address] CYTOLOGY,BF/CSF SEE PATHOLOGY REPORT Comments: [facility] (Normal) 54-Yzl-944130:0 CYTOSPIN ON FLUID See Note (Normal) Comments: [facility] [address] [place], [place], [address] 0 Comments: Patient: LUIS CARLOS WILLS : 1950 (66/F) Acct Num: [id number] Phys: Ced COX,mR Frost Unit Num: [id number] Loc: LABSPEC Specimen: [id number] Received: 10/25/16 - 1215 Sp ec Type: CYSPIN FL TISSUES TISSUES: CYTOLOGY GROSS Received is 70 ml of clear yellow fluid labeled with the patient's name and and designated per the requisition as urine. Sub mitted for cytology preparation. 10/25/16 TC:5 CPT: 86646 CYTOLOGY STUDY Slides are reviewed. The specimen predominantly consists of benign squamous cells, a few urothelial cells, neutrophils and organisms consistent with bacteria. DIAGNOSIS CYTOLOGY Urine for cytology (cytospin): Negative for malignant cells. SJ:nellie 10/26/16 HEADER OPERATION: Not noted PRE-OP DIAGNOSIS : Hematuria R31.9 TISSUE SUBMITTED: Urine for cytology Signed Khoa Rosasin 10/26/16 <signature on file> 6-Udc-160626:10 Microscopic Examination Comments: PERFORMED BY: [facility] [id number] Bacteria Few (Normal) Mucus Threads Present (Normal) Crystal Type Calcium Oxalate (Normal) Crystals Present (Abnormal) Epithelial Cells (non renal) 0-10 {/hpf} (Normal) Range: 0 - 10 RBC 0-2 {/hpf} (Normal) Range: 0 - 2 WBC 0-5 {/hpf} (Normal) Range: 0 - 5 1-Jma-904666:15 Urinalysis, Office (89982) UA - NITRITE Negative (Normal) UA - LEUKOCYTE ESTERASE Trace (Normal) URINE UROBILINGN LINDSEY TIMED Normal mg/dL (Normal) UA - PROTEIN Negative mg/dL (Normal) UA - PH 5 (Abnormal) UA - BLOOD Hemolyzed Trace (Normal) UA - SPECIFIC GRAVITY 1.015 (Normal) UA - KETONES Negative mg/dL (Normal) UA - BILIRUBIN Negative (Normal) UA - GLUCOSE Negative (Normal) :32 UNDYJ-KQDXCEZCGAV-XZQSH (51193) Comments: PERFORMED BY: [facility] [id number] BY: [address] [id number] AFP, Serum, Tumor Marker 2.6 ng/mL (Normal) Range: 0.0-8.3 Comments: [facility] ECLIA methodology 2-Gtk-058924:32 Metabolic Panel, Basic Comments: PERFORMED BY: [facility] [id number] BY: [address] [id number] Information: [id number] (29555) Calcium, Serum 9.3 mg/dL (Normal) Range: 8.7-10.3 Carbon Dioxide, Total 24 mmol/L (Normal) Range: 18-29 Chloride, Serum 104 mmol/L (Normal) Range: 96-106 Potassium, Serum 4.3 mmol/L (Normal) Range: 3.5-5.2 Sodium, Serum 145 mmol/L (Abnormal) Range: 134-144 BUN/Creatinine Ratio 22 (Normal) Range: 11-26 eGFR If Africn Am 70 mL/min/1.73 (Normal) eGFR If NonAfricn Am 61 mL/min/1.73 (Normal) Creatinine, Serum 0.97 mg/dL (Normal) Range: 0.57-1.00 BUN 21 mg/dL (Normal) Range: 8-27 Glucose, Serum 69 mg/dL (Normal) Range: 65-99 :32 T3, TOTAL (TRIDOTHYRONINE) Comments: PERFORMED BY: [facility] [id number] BY: [employer] [id number] (07726) Triiodothyronine (T3) 87 ng/dL (Normal) Range: 71-180 :32 TSH (64916) Comments: PERFORMED BY: [facility] [id number] BY: [employer] [id number] TSH 0.267 {uIU/mL} (Abnormal) Range: 0.450-4.500 :32 Methymalonic Acid, Serum Comments: PERFORMED BY: [facility] Lopez [facility] [id number] BY: [employer] [id number] (76199) Methylmalonic Acid, Serum 134 nmol/L (Normal) Range: 0-378 9-Lcy-455515:32 Vitamin B-12 (cyanocobalamin) Comments: PERFORMED BY: [place] 1725570 [facility] [id number] BY: [address] [id number] (79923) Vitamin B12 1073 pg/mL (Abnormal) Range: 211-946 :32 HGB A1C (69902) Comments: PERFORMED BY: [address] [id number] BY: [address] [id number] Hemoglobin A1c 6.5 % (Abnormal) Range: 4.8-5.6 Comments: . Pre-diabetes: 5.7 - 6.4 Diabetes: >6.4 Glycemic control for adults with diabetes: <7.0 :32 HEPATITIS C ANTIBODY Comments: PERFORMED BY: [address] [id number] BY: [address] [id number] (46237) Hep C Virus Ab <0.1 {s/co_ratio} (Normal) Range: 0.0-0.9 Comments: Negative: < 0.8 Indeterminate: 0.8 - 0.9 Positive: > 0.9 . The CDC recommends that a positive HCV antibody result be followed up with a HCV Nucleic Acid Amplification test (931419). :10 URINE ELIN CULTURE-IDENTIFICATN Comments: PERFORMED BY: [address] [id number] (74033) Result 1 MUG (Normal) Comments: Mixed urogenital flora10,000-25,000 colony forming units per mL Urine Final report (Normal) Culture,Comprehensive :10 URINALYSIS (36619) Comments: PERFORMED BY: [address] [id number] Information: [id number] SRC:UVC Microscopic Examination See below: (Normal) Comments: Microscopic was indicated and was performed. Nitrite, Urine Negative (Normal) Urobilinogen,Semi-Qn 0.2 mg/dL (Normal) Range: 0.2-1.0 Bilirubin Negative (Normal) Occult Blood Negative (Normal) Ketones Negative (Normal) Glucose Negative (Normal) Protein Negative (Normal) WBC Esterase 1+ (Abnormal) Appearance Clear (Normal) Urine-Color Yellow (Normal) pH 6.0 (Normal) Range: 5.0-7.5 Specific Carroll 1.014 (Normal) Range: 1.005-1.030 Plan of Care Name Dates Details Instructions Allergic rhinitis due to pollen, unspecified seasonality : Eprescribed prescriptions (G8553) Indication: Allergic rhinitis due to pollen, unspecified seasonality Actinic keratosis (Renamed from Keratosis, actinic) : Cryotherapy Indication: Actinic keratosis (Renamed from Keratosis, actinic) BMI 33.0-33.9,adult : Eprescribed prescriptions (G8553) Indication: BMI 33.0-33.9,adult INFLAMED SEBORRHEIC KERATOSIS : Histofreeze - Wart Indication: INFLAMED SEBORRHEIC KERATOSIS Planned Observations HEPATIC FUNCTION PANEL (47908)Indication: Fatty liver On: 86-Ckr-481962:56 Request Vitamin B-12 (cyanocobalamin) (54198)Indication: Vitamin B12 deficiency On: 71-Ufw-083625:56 Request TSH (61791)Indication: Adult hypothyroidism On: 97-Eto-275428:28 Request LIPID PANEL (67943)Indication: Type II diabetes mellitus On: 07-Yad-243660:28 Request METABOLIC PANEL, COMPREHENSIVE (56097)Indication: Type II diabetes mellitus On: 17-Tpo-878270:28 Request Metabolic Panel, Comprehensive (69398)Indication: Abnormal blood creatinine level On: 66-Wsy-861430:23 Request Comments: re check in 8 weeks TSH (38388)Indication: Adult hypothyroidism On: 82-Klq-759226:23 Request Comments: re check in 8 weeks TSH (22712)Indication: Adult hypothyroidism On: 6-Hrt-534289:59 Request CREATININE CLEARANCE (08157)Indication: Renal insufficiency On: :49 Request Total Protein,24 Hour Urine (96487)Indication: Renal insufficiency On: :49 Request Metabolic Panel, Basic (24179)Indication: Renal insufficiency On: 8-Djj-612689:49 Request Metabolic Panel, Comprehensive (62106)Indication: Abnormal blood creatinine level On: 20-Pka-260002:31 Request Comments: re check in 8 weeks URINE ELIN CULTURE-IDENTIFICATN (32302)Indication: Flank pain On: 6-Scs-344599:02 Request URINALYSIS (41371)Indication: Flank pain On: 7-Iev-991475:02 Request TSH (92979)Indication: Adult hypothyroidism On: :48 Request METABOLIC PANEL, COMPREHENSIVE (56784)Indication: Type II diabetes mellitus On: :48 Request CBC W/AUTO DIFF WBC (08304)Indication: Type II diabetes mellitus On: :48 Request Uric Acid Blood (96065)Indication: Elevated uric acid in blood On: 99-Qyr-86463:43 Request T4, FREE (THYROXINE) (29207)Indication: History of Graves' disease On: 5-Quo-138796:55 Request Comments: re check in 8 weeks T3, FREE (TRIDOTHYRONINE) (48422)Indication: History of Graves' disease On: 3-Pyp-104997:55 Request Comments: re check in 8 weeks TSH (48560)Indication: History of Graves' disease On: 8-Txx-933623:54 Request Comments: re check in 8 weeks URINE ELIN CULTURE-IDENTIFICATN (51535)Indication: Acute cystitis without hematuria On: 42-Ozr-431610:42 Request Planned Procedures Flu Vaccine (Quadrivalent) On: 14-Jun-2018 Intent 83828Ji: Rowan Mott MD Comments: Lot #:[id number] date: 5-09-13Rfbjim given:0.5mlRoute: IMSite given:L DltdGiven by: ElSean and ABN signed [employer] Rowan Mott MD CT - Abdomen & Pelvis Stone On: 02-Oct-2017 Intent ProtocolBy: Rowan Mott MD, MD, Dana M Flu Vaccine (Quadrivalent) On: 20-Jun-2017 Intent 51809Ro: Rowan Mott MD Comments: QUAD flu 0.5ml injectionlot number: [id number]: 11/2017R Deltoid IMpt tolerated wellAD DIRECTORY CARRIER Rowan Mott MD SCREENING DIGITAL TOMOSYNTHESIS On: 20-Apr-2017 Intent OF BREAST (67480)By: Rowan Mott MD, MD, Dana M DEXA SCAN AXIAL SKELETON On: 20-Apr-2017 Intent (96784)By: Rowan Mott MD, MD, Dana M EMGBy: Rowan Mott MD On: 14-Nov-2016 Intent Rowan COX Nerve ConductionBy: Pantera COX, On: 14-Nov-2016 Intent Rowan Pickett MD Comments: right foot. Bone Density StudyBy: Pantera COX, On: 14-Nov-2016 Intent Rowan Pickett MD CT - Abdomen & Pelvis Stone On: 19-Sep-2016 Intent ProtocolBy: Rowan Mott MD, MD, Dana M CT - Abdomen (IV Contrast On: 19-Sep-2016 Intent Needed)By: Rowan Mott MD Comments: do at [facility] follow up cysts. Rowan Mott MD MAMMOGRAM BREAST BILATERAL On: 19-Sep-2016 Intent SCREENING DIGITAL (90781)By: Rowan Mott MD, MD, Dana M Instructions Name Dates Details Type II diabetes mellitus : How to access health information online Indication: Type II diabetes mellitus Type II diabetes mellitus : How to access health information online - Detail Indication: Type II diabetes mellitus Type II diabetes mellitus : Patient Instructions Indication: Type II diabetes mellitus Allergic rhinitis due to pollen, unspecified seasonality : How to access health information online Indication: Allergic rhinitis due to pollen, unspecified seasonality Allergic rhinitis due to pollen, unspecified seasonality : How to access health information online - Detail Indication: Allergic rhinitis due to pollen, unspecified seasonality Allergic rhinitis due to pollen, unspecified seasonality : Patient Instructions Indication: Allergic rhinitis due to pollen, unspecified seasonality BMI 31.0-31.9,adult : How to access health information online Indication: BMI 31.0-31.9,adult BMI 31.0-31.9,adult : How to access health information online - Detail Indication: BMI 31.0-31.9,adult BMI 31.0-31.9,adult : Patient Instructions Indication: BMI 31.0-31.9,adult BMI 33.0-33.9,adult : How to access health information online Indication: BMI 33.0-33.9,adult BMI 33.0-33.9,adult : How to access health information online - Detail Indication: BMI 33.0-33.9,adult BMI 33.0-33.9,adult : Patient Instructions Indication: BMI 33.0-33.9,adult Encounter for routine adult medical exam with abnormal findings : How to access health information online Indication: Encounter for routine adult medical exam with abnormal findings Encounter for routine adult medical exam with abnormal findings : How to access health information online - Detail Indication: Encounter for routine adult medical exam with abnormal findings Encounter for routine adult medical exam with abnormal findings : Patient Instructions Indication: Encounter for routine adult medical exam with abnormal findings BMI 33.0-33.9,adult : How to access health information online Indication: BMI 33.0-33.9,adult BMI 33.0-33.9,adult : How to access health information online - Detail Indication: BMI 33.0-33.9,adult BMI 33.0-33.9,adult : Patient Instructions Indication: BMI 33.0-33.9,adult BMI 33.0-33.9,adult : How to access health information online Indication: BMI 33.0-33.9,adult BMI 33.0-33.9,adult : How to access health information online - Detail Indication: BMI 33.0-33.9,adult BMI 33.0-33.9,adult : Patient Instructions Indication: BMI 33.0-33.9,adult BMI 33.0-33.9,adult : How to access health information online Indication: BMI 33.0-33.9,adult BMI 33.0-33.9,adult : How to access health information online - Detail Indication: BMI 33.0-33.9,adult BMI 33.0-33.9,adult : Patient Instructions Indication: BMI 33.0-33.9,adult Encounter for routine adult medical exam with abnormal findings : How to access health information online Indication: Encounter for routine adult medical exam with abnormal findings Encounter for routine adult medical exam with abnormal findings : How to access health information online - Detail Indication: Encounter for routine adult medical exam with abnormal findings Encounter for routine adult medical exam with abnormal findings : Patient Instructions Indication: Encounter for routine adult medical exam with abnormal findings BMI 33.0-33.9,adult : How to access health information online Indication: BMI 33.0-33.9,adult BMI 33.0-33.9,adult : How to access health information online - Detail Indication: BMI 33.0-33.9,adult BMI 33.0-33.9,adult : Patient Instructions Indication: BMI 33.0-33.9,adult BMI 32.0-32.9,adult : How to access health information online Indication: BMI 32.0-32.9,adult BMI 32.0-32.9,adult : How to access health information online - Detail Indication: BMI 32.0-32.9,adult BMI 32.0-32.9,adult : Patient Instructions Indication: BMI 32.0-32.9,adult Encounters Phone Encounter On: 14-Aug-2018 16:14 Encounter Diagnosis: Mixed hyperlipidemia End: 14-Aug-2018 16:17 [facility] Office Visit On: 14-Jun-2018 11:28 Encounter Reason: Follow up for chronic medical issues - The patient feels well with no complaints, has good energy level and is sleeping well. Patient has been compliant with instructions. Current medication use: no galina End: 14-Jun-2018 12:01 e effects, compliant with dosing regimen and considered effective by patient. Patient sleeps 7 hours per night. Impact of disease: emotional impact-mild. Nutrition: balanced diet and supplemental vitami ns. The medical issues the patient is following up for include asthma, blood sugar issues, cardiac issues, depression, high blood pressure, high cholesterol, hypothyroid, kidney problems, osteoporosis/o steopenia and other (RLS, urinary incont., vitamin d def., fatty liver).Encounter Diagnosis: BMI 32.0-32.9,adult, Type II diabetes mellitus, Current nonsmoker (Renamed from Current non-smoker), Need for prophylactic vaccination and inoculation against influenza (Renamed from Need for immunization against influenza), Squamous cell carcinoma of nose, Bilateral hearing loss, unspecified hearing loss type, History of breast cancer in female, Menopausal state, Abnormal cystoscopy, Vestibular migraine, History of asthma, Allergic rhinitis, mild, History of Graves' disease, Other hypoparathyroidism, Postmenopausal (Renamed from Postmenopausal status), Fatty liver, Mild depression, Bilateral renal cysts, Bunion, right, Incontinence of urine, Anserine bursitis, Epidermal cyst, Memory loss, Fatigue due to exposure, subsequent encounter, Allergic rhinitis due to pollen, unspecified seasonality, Mixed hyperlipidemia, Renal insufficiency, Adult hypothyroidism, Encounter for routine adult medical exam with abnormal findings, Restless leg, Sensorineural hearing loss (SNHL) of both ears, Vitamin B12 deficiency, Obesity (BMI 30-39.9), Squamous cell carcinoma of nasopharynx, BMI 31.0-31.9,adult [facility] Office Visit On: 25-May-2018 9:46 Encounter Reason: Cold Symptoms - Symptoms include nasal congestion, postnasal drainage and scratchy throat (R side, comes and goes), while symptoms do not include facial pressure or headache. Onset was week(s) ago. The End: 25-May-2018 10:21 symptoms occur frequently. Associated symptoms include ear pain (R ear spasms), fatigue and fever (she did previously but nothign now), while associated symptoms do not include plugged ear(s), nausea or vomiting. Current treatment includes antihistamines and antibiotics (augmentin). Note for Cold symptoms: inpast cough and wheeze not right now. lethargic not sleep well at night because nose block off which is structural.taking claritin taking 6 years.Encounter Diagnosis: Current nonsmoker (Renamed from Current non-smoker), BMI 31.0-31.9,adult, Allergic rhinitis due to pollen, unspecified seasonality, Fatigue due to exposure, subsequent encounter [facility] Phone Encounter On: 09-Apr-2018 15:03 Encounter Diagnosis: Acute non-recurrent maxillary sinusitis End: 09-Apr-2018 15:05 [facility] Office Visit On: 13-Mar-2018 10:22 Encounter Diagnosis: Type II diabetes mellitus, Adult hypothyroidism End: 13-Mar-2018 10:31 [facility] Visit On: 12-Mar-2018 10:58 Encounter Reason: Follow up for chronic medical issues - The patient feels well with minor complaints and has good energy level. Patient has been compliant with instructions. Current medication use: no side effects and c End: 12-Mar-2018 11:47 ompliant with dosing regimen. Patient sleeps 7 hours per night. Impact of disease: emotional impact-mild. Nutrition: balanced diet and supplemental vitamins. The medical issues the patient is following up for include asthma, blood sugar issues, cardiac issues, depression, hypothyroid and other (hx. of squamous cell, hearin gloss, allergic rhinitis, Grave's, hypoparathyroid, fatty liver, hx. breast cancer).Encounter Diagnosis: BMI 31.0-31.9,adult, Current nonsmoker (Renamed from Current non-smoker), Type II diabetes mellitus, Bilateral hearing loss, unspecified hearing loss type, History of asthma, Vestibular migraine, Squamous cell carcinoma of nose, Menopausal state, History of breast cancer in female, History of Graves' disease, Fatty liver, Postmenopausal (Renamed from Postmenopausal status), Other hypoparathyroidism, Mild depression, Allergic rhinitis, mild, Bunion, right, Bilateral renal cysts, Renal insufficiency, Memory loss, Paresthesia of right foot, Adult hypothyroidism, Abnormal cystoscopy, Incontinence of urine, Sensorineural hearing loss (SNHL) of both ears, Encounter for routine adult medical exam with abnormal findings, Vitamin B12 deficiency, Mixed hyperlipidemia, Anserine bursitis, Epidermal cyst, Squamous cell carcinoma of nasopharynx, Obesity (BMI 30-39.9), Restless leg [facility] Phone Encounter On: 13-Feb-2018 12:50 Encounter Diagnosis: Dysuria End: 13-Feb-2018 12:54 [facility] Lab Order On: 13-Feb-2018 12:43 Encounter Diagnosis: Dysuria End: 13-Feb-2018 12:45 [facility] Lab Order On: 08-Jan-2018 17:22 Encounter Diagnosis: Adult hypothyroidism, Abnormal blood creatinine level End: 08-Jan-2018 17:25 [facility] Office Visit On: 12-Dec-2017 10:07 Encounter Reason: Follow up acute care visit - The patient feeling better since last seen and improving. Patient has been compliant with instructions. Current medication use: no side effects and compliant with dosing reg End: 12-Dec-2017 11:00 imen. Patient sleeps 7 hours per night. Impact of disease: emotional impact-mild. Nutrition: balanced diet and supplemental vitamins. The medical issues the patient is following up for include other (recurrent UTI's).Encounter Diagnosis: Current nonsmoker (Renamed from Current non-smoker), BMI 33.0-33.9,adult, Type II diabetes mellitus, Incontinence of urine, Other hypoparathyroidism, Postmenopausal (Renamed from Postmenopausal status), Fatty liver, Mild depression, Bilateral renal cysts, Bunion, right, Allergic rhinitis, mild, Vestibular migraine, History of asthma, Bilateral hearing loss, unspecified hearing loss type, Squamous cell carcinoma of nose, History of Graves' disease, History of breast cancer in female, Menopausal state, Sensorineural hearing loss (SNHL) of both ears, Adult hypothyroidism, Vitamin B12 deficiency, Encounter for routine adult medical exam with abnormal findings, Epidermal cyst, Anserine bursitis, Mixed hyperlipidemia, Paresthesia of right foot, Memory loss, Renal insufficiency, Obesity (BMI 30-39.9), Abnormal cystoscopy, Squamous cell carcinoma of nasopharynx, Flank pain [facility] Office Visit On: 02-Oct-2017 13:30 Encounter Diagnosis: Current nonsmoker (Renamed from Current non-smoker), Fatty liver, Adnexal mass, History of Graves' disease, Memory loss, Vestibular migraine, History of asthma, Bilateral hearing loss, unspecified hearing loss type, End: 03-Oct-2017 16:26 Squamous cell carcinoma of nose, Adult hypothyroidism, History of breast cancer in female, Menopausal state, Bilateral renal cysts, Bunion, right, Paresthesia of right foot, Elevated uric acid in blood, Abnormal blood creatinine level, Mixed hyperlipidemia, Vitamin B12 deficiency, Other hypoparathyroidism, Postmenopausal (Renamed from Postmenopausal status), Abnormal cystoscopy, Allergic rhinitis, mild, Mild depression, Encounter for routine adult medical exam with abnormal findings, Squamous cell carcinoma of nasopharynx, Flank pain, Actinic keratosis (Renamed from Keratosis, actinic), Obesity (BMI 30-39.9), Type II diabetes mellitus, BMI 33.0-33.9,adult, Renal insufficiency, Sensorineural hearing loss (SNHL) of both ears, Anserine bursitis, Epidermal cyst [facility] Phone Encounter On: 21-Sep-2017 18:31 Encounter Diagnosis: UTI (urinary tract infection) End: 21-Sep-2017 18:32 [facility] Lab Order On: 18-Sep-2017 11:57 Encounter Diagnosis: Other hypoparathyroidism, Vitamin B12 deficiency End: 18-Sep-2017 12:26 [facility] Order On: 11-Sep-2017 17:01 Encounter Diagnosis: Type II diabetes mellitus End: 11-Sep-2017 17:04 [facility] Office Visit On: 20-Jun-2017 10:53 Encounter Reason: Injections - The medication the patient is here to receive is other (quad flu).Encounter Diagnosis: Need for prophylactic vaccination and inoculation against influenza (Renamed from Need for immunization against influenza) End: 22-Jun-2017 6:14 [facility] Order On: 24-Apr-2017 11:31 Encounter Diagnosis: Abnormal blood creatinine level End: 24-Apr-2017 11:34 [facility] Visit On: 20-Apr-2017 9:32 Encounter Reason: Follow up for chronic medical issues - The patient feels well with no complaints, has good energy level and is sleeping well. Patient has been compliant with instructions. Current medication use: no galina End: 20-Apr-2017 12:05 e effects and compliant with dosing regimen. Patient sleeps 7 hours per night. Nutrition: balanced diet., [ADDITIONAL REASON] Annual Medicare Exam - Yes the patient did have a mini mental status exam done t emiliano. The activities of daily living the patient needs help with are none. The patient has had urinary incontinence, but the patient has not had fecal incontinence, missed or ran out of medications to s oon, driven in past 6 months, fallen in the past 6 months, gotten lost, has a medalert necklace or bracelet, put area rugs through house or put handrails in bathroom. The patient has [facility] preventative measures: PAP smear (over 5 years ago), mammography (due jul 2017) and colonoscopy (about 3 years ago). The patient does not have durable power of tentmaker or living will. The patient has noticed nothing from the geriatic depression scale. Encounter Diagnosis: BMI 33.0-33.9,adult, Menopausal state, History of breast cancer in female, Adult hypothyroidism, Vitamin B12 deficiency, Mixed hyperlipidemia, Bilateral renal cysts, Screening mammogram, encounter for, Obesity (BMI 30-39.9), Mild depression, Elevated uric acid in blood, Type II diabetes mellitus, Paresthesia of right foot, Abnormal cystoscopy, Bunion, right, Other hypoparathyroidism, Squamous cell carcinoma of nose, History of Graves' disease, Adnexal mass, Fatty liver, Flank pain, Redness of eye, right, Current nonsmoker (Renamed from Current non-smoker), Memory loss, Bilateral hearing loss, unspecified hearing loss type, INFLAMED SEBORRHEIC KERATOSIS, Encounter for routine adult medical exam with abnormal findings, History of asthma, Vestibular migraine, Allergic rhinitis, mild, Squamous cell carcinoma of nasopharynx, BMI 32.0-32.9,adult, Encounter for hepatitis C virus screening test for high risk patient, Postmenopausal (Renamed from Postmenopausal status), Actinic keratosis (Renamed from Keratosis, actinic) [facility] Order On: 03-Apr-2017 12:02 Encounter Diagnosis: Flank pain End: 03-Apr-2017 12:04 [facility] Order On: 03-Apr-2017 11:57 Encounter Diagnosis: UTI (urinary tract infection) End: 03-Apr-2017 12:01 [facility] Office Visit On: 09-Jan-2017 9:47 Encounter Diagnosis: BMI 33.0-33.9,adult, Current nonsmoker (Renamed from Current non-smoker), Redness of eye, right End: 09-Jan-2017 10:18 [facility] Visit On: 12-Dec-2016 9:04 Encounter Reason: Follow up acute care visit - The patient feeling better since last seen and improving. Patient has been compliant with instructions. Current medication use: no side effects, compliant with dosing regime End: 12-Dec-2016 9:50 n and considered effective by patient. Patient sleeps 7 hours per night. Impact of disease: emotional impact-mild. Nutrition: balanced diet and supplemental vitamins. The medical issues the patient is following up for include depression (anxiety ). Encounter Diagnosis: BMI 33.0-33.9,adult, Current nonsmoker (Renamed from Current non-smoker), Type II diabetes mellitus, Mild depression, Elevated uric acid in blood, Obesity (BMI 30-39.9), Abnormal cystoscopy, Adult hypothyroidism [facility] Visit On: 14-Nov-2016 7:45 Encounter Diagnosis: Encounter for routine adult medical exam with abnormal findings, Current nonsmoker (Renamed from Current non-smoker), Mixed hyperlipidemia, Squamous cell carcinoma of nose, Fatty liver, Adnexal mass, End: 15-Nov-2016 10:22 Squamous cell carcinoma of nasopharynx, BMI 33.0-33.9,adult, Bilateral renal cysts, Type II diabetes mellitus, History of Graves' disease, Abnormal cystoscopy, Screening mammogram, encounter for, Other hypoparathyroidism, Adult hypothyroidism, Menopausal state, History of breast cancer in female, Bunion, right, Paresthesia of right foot, Allergic rhinitis, mild, Vestibular migraine, History of asthma, Elevated uric acid in blood, Vitamin B12 deficiency, Mild depression, Obesity (BMI 30-39.9), Memory loss, Bilateral hearing loss, unspecified hearing loss type, INFLAMED SEBORRHEIC KERATOSIS [facility] Lab Order On: 03-Oct-2016 11:54 Encounter Diagnosis: History of Graves' disease End: 03-Oct-2016 11:56 [facility] Office Visit On: 29-Sep-2016 10:31 Encounter Reason: Follow up acute care visit - The patient feeling better since last seen and improving. Patient has been compliant with instructions. Current medication use: no side effects, compliant with dosing regime End: 29-Sep-2016 22:05 n and considered effective by patient. Patient sleeps 7 hours per night. Impact of disease: emotional impact-mild. Nutrition: balanced diet and supplemental vitamins. The medical issues the patient is following up for include UTI. Encounter Diagnosis: BMI 33.0-33.9,adult, Current nonsmoker (Renamed from Current non-smoker), Squamous cell carcinoma of nasopharynx, Flank pain, Abnormal cystoscopy, Type II diabetes mellitus, Encounter for hepatitis C virus screening test for high risk patient, Bilateral renal cysts, Squamous cell carcinoma of nose, Hyperlipidemia, Adnexal mass, Fatty liver, Acute cystitis without hematuria, Other hypoparathyroidism, History of Graves' disease, Adult hypothyroidism, Screening mammogram, encounter for [facility] Office Visit On: 19-Sep-2016 11:03 Encounter Reason: UTI - The urinary symptoms are described as painful urination, frequency, urgency, flank pain and burning. The symptoms have been occurring for 5 days and have been recurrent. The symptoms have been as End: 19-Sep-2016 12:45 sociated with low back pain. There is a medical history of kidney stones and recurrent urinary tract infections. The patient has been using antibiotics (currently on Cirpo )., [ADDITIONAL REASON] Transition into care - The patient is transitioning into care from another physician (Dr. Devine ) and a summary of care was reviewed . Encounter Diagnosis: BMI 32.0-32.9,adult, Graves disease, Squamous cell carcinoma of nose, Hyperlipidemia, Screening mammogram, encounter for, Type II diabetes mellitus, UTI (urinary tract infection), Adnexal mass, Bilateral renal cysts, Abnormal cystoscopy, Encounter for hepatitis C virus screening test for high risk patient, History of Graves' disease, Adult hypothyroidism, Other hypoparathyroidism, Fatty liver, Flank pain, Acute cystitis without hematuria [facility] Order On: 15-Sep-2016 11:17 Encounter Diagnosis: UTI (urinary tract infection) End: 15-Sep-2016 11:44 [facility]or
--- OUTSIDE RECORDS SUMMARY | 2018-11-16 17:55 | XMS RPT_ITS | Continuity of Care Document ---
:1950 Author Organization [facility] Address [facility] 2 [place] [address] Phone Care Team Providers Name Role Phone Rowan Mott MD Unavailable Hearing Services-- Cristy Colindres Unavailable Dr. Ehsan Recinos Unavailable [facility] Unavailable Alexander Joy Tawny Unavailable VALORIE [...] HPV 2016 negative, had total hysterectomy BSO, mconokddeml=6742 (normal), Burn's scale=22 (mild depression) see dentist and eye DrRaquel yearly Status: Active Epidermal cyst (L72.0, 706.2) Status: Active Fatigue due to exposure, subsequent encounter (T73.2XXD, V58.89) Status: Active Fatty liver (K76.0, 571.8) Status: Active History of asthma (Z87.09, V12.69) Comments: had bad asthma in [place] in winter and cold not have [...] used zoloft andhelp. some seasonal came from [facility] and now cloudy all time. she does [...] 5 episodes since 2004. work up in [facility]. not ear or menieries. MRI negative of brain. ENG negative. next step was neurology but better so not go. got [employer] shot and gone spring. Status: Active Vitamin [...] days Quantity: 2 {Tablet} Refills: 0 Ordered:14-Aug-2018 VALORIE Porras Start : 14-Aug-2018 Active Simvastatin 20 MG Oral Tablet 1 Tablet qd for 0 days Quantity: 90 {Tablet} Refills: 3 Ordered:12-Dec-2017 Rowan Mott MD, MD, Dana M Start : 12-Dec-2017 Active Tobramycin-Dexamethasone 0.3-0.1 % Ophthalmic Suspension 1 (one) Suspension Suspension 2 dropps in right eye every 6 hours. for 0 days Quantity: 1 {Bottle} Refills: 0 Ordered:02-Oct-2017 Pantera COX, Rowan Field MD, Rowan Hector Start : 02-Oct-2017 Active Trulicity 1.5 MG/0.5ML [...] Refills: 3 Ordered:29-Dec-2017 Rowan Mott MD, MD, Rowan Hector Start : 29-Dec-2017 Active Xyzal Allergy 24HR [...] days Quantity: 2 Kit Refills: 0 Ordered:13-Feb-2018 VALORIE Porras Start : 12-Dec-2017 End : 13-Feb-2018 Inactive Glimepiride 1 MG Oral Tablet 1 Tablet qhs for 0 days Quantity: 90 {Tablet} Refills: 3 Ordered:12-Dec-2016 Rowan Mott MD, MD, Dana M Start : 12-Dec-2016 End : 12-Dec-2016 Discontinued Janumet 50-500 MG Oral Tablet 1 Tablet bid for 0 days Quantity: 180 {Tablet} Refills: 3 Ordered:12-Dec-2017 Rowan Mott MD, MD, Dana M Start : 12-Dec-2017 End : 12-Dec-2017 Discontinued [...] Keratosis, actinic) (L57.0, 702.0) Comments: on right roman catholic area Status: Resolved as of 12-Dec-2017 Acute cystitis without hematuria (N30.00, 595.0) Status: Inactive as of 14-Nov-2016 Adnexal mass (N94.9, 625.8) Comments: Dr leidy [facility] good. 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 Comments: walk daily about 20 minutes. Status: Active Living Situation Comments: lives with spouse Tenriism-important Status: Active No Drug Use Status: Active [...] kg/m2 Body Surface Area Calculated 2.03 m2 82-Qhy-923828:04 Temperature 97.6 f Comments: Method: Temporal Pulse [...] 2.01 m2 Results Date Description Value Details 32-Lsv-327318:29 HgA1C , Office (01255) HgA1C , Office 6.6 % (Normal) Range: 4.6 - 7.1 28-Ofw-481254:36 EBV Panel (49841) Comments: PATIENT NOT FASTINGPERFORMED BY: [facility] [id number] Interpretation: SPRCS (Normal) Comments: EBV Interpretation Chart [...] <36.0 Equivocal 36.0 - 43.9 Positive >43.9 81-Mvp-845905:36 CBC (AUTO) (09011) Comments: PATIENT NOT FASTINGPERFORMED BY: [employer] Turdvw7735 [address] [facility] [id number] Platelets 228 {x10E3/uL} (Normal) Range: 150-379 RDW 15.7 % (Abnormal) Range: 12.3-15.4 MCHC 33.7 g/dL (Normal) Range: 31.5-35.7 MCH 28.8 pg (Normal) Range: 26.6-33.0 MCV 86 fL (Normal) Range: 79-97 Hematocrit 35.3 % (Normal) Range: 34.0-46.6 Hemoglobin 11.9 g/dL (Normal) Range: 11.1-15.9 RBC 4.13 {x10E6/uL} (Normal) Range: 3.77-5.28 WBC 7.3 {x10E3/uL} (Normal) Range: 3.4-10.8 06-Ulx-614215:36 METABOLIC PANEL, COMPREHENSIVE Comments: PATIENT NOT FASTINGPERFORMED BY: [facility] Wyyyhx3829 [facility] [id number] (50723) ALT (SGPT) 34 [iU]/L (Abnormal) Range: 0-32 [...] 8-27 Glucose 130 mg/dL (Abnormal) Range: 65-99 00-Hoi-199403:36 Folate (43399) Comments: PATIENT NOT FASTINGPERFORMED BY: [facility] Tdlwml6335 Lopez RoadDublin [place] [id number] Folate (Folic Acid), Serum >20.0 ng/mL (Normal) Comments: A serum folate concentration of less than 3.1 ng/mL isconsidered to represent clinical deficiency. 50-Usq-147750:36 VITAMIN B-12 (CYANOCOBALAMIN) Comments: PATIENT NOT FASTINGPERFORMED BY: [facility] Enbhnm8029 Lopez Roadblin [place] [id number] (86895) Vitamin B12 >2000 pg/mL (Abnormal) Range: 232-1245 53-Pgg-439786:36 SED RATE ERYTHROCYTE (86079) Comments: PATIENT NOT FASTINGPERFORMED BY: [facility] Zdjqqy8004 Lopez Roadblin [place] [id number] Sedimentation Rate-Westergren 2 mm/h (Normal) Range: 0-40 39-Zuj-910928:36 TSH (41136) Comments: PATIENT NOT FASTINGPERFORMED BY: [facility] Mysdwp4051 [address] [facility] [place] [id number] TSH 1.230 {uIU/mL} (Normal) Range: 0.450-4.500 64-Bnh-346046:34 HgA1C , Office (73631) HgA1C , Office 6.7 % (Normal) Range: 4.6 - 7.1 87-Itk-997117:40 Microscopic Examination Comments: PATIENT NOT FASTINGPERFORMED BY: CB [facility] Qgmohq4382 Lopez RoadDublin [place] [id number] Bacteria Few (Normal) Mucus Threads Present (Normal) Cast Type Hyaline casts (Normal) Casts Present {/lpf} (Abnormal) Epithelial Cells (non renal) 0-10 {/hpf} (Normal) Range: 0 - 10 RBC None seen {/hpf} (Normal) Range: 0 - 2 WBC 0-5 {/hpf} (Normal) Range: 0 - 5 45-Uam-261817:50 Urinalysis, Office (94843) UA - LEUKOCYTE ESTERASE Trace (Normal) UA - NITRITE Negative (Normal) URINE UROBILINGN LINDSEY TIMED 2 mg/dL (Normal) UA - PROTEIN Negative mg/dL (Normal) UA - PH 8.0 (Normal) UA - BLOOD Hemolyzed Trace (Normal) UA - SPECIFIC GRAVITY 1.015 (Normal) UA - KETONES Negative mg/dL (Normal) UA - BILIRUBIN Negative (Normal) UA - GLUCOSE Negative (Normal) 36-Jph-158745:40 URINE ELIN CULTURE-IDENTIFICATN Comments: PATIENT NOT FASTINGPERFORMED BY: [facility] [id number] (74520) Result 1 MUG (Normal) Comments: Mixed urogenital flora1,000 Colonies/mL Urine Culture,Comprehensive Final report (Normal) 37-Kbg-489688:40 URINALYSIS (97310) Comments: PATIENT NOT FASTINGPERFORMED BY: [facility]Nov[facility] [id number] Information: SRC: Microscopic Examination See below: (Normal) Comments: Microscopic was indicated and was performed. Nitrite, Urine Negative (Normal) Urobilinogen,Semi-Qn 0.2 mg/dL (Normal) Range: 0.2-1.0 Bilirubin Negative (Normal) Occult Blood Negative (Normal) Ketones Negative (Normal) Glucose Negative (Normal) Protein Negative (Normal) WBC Esterase Trace (Abnormal) Appearance Clear (Normal) Urine-Color Yellow (Normal) pH 8.0 (Abnormal) Range: 5.0-7.5 Specific [place] 1.008 (Normal) Range: 1.005-1.030 53-Qbv-597031:21 URINE ELIN CULTURE-IDENTIFICATN Comments: PATIENT NOT FASTINGPERFORMED BY: [employer] Pbwihd7972 Gen One CigNovant Health [facility] Center [id number] Information: SRC: (24810) Result 1 MUG (Normal) Comments: Mixed urogenital flora10,000-25,000 colony forming units per mL Urine Final report (Normal) Culture,Comprehensive 18-Odm-131206:14 Urinalysis, Office (09645) UA - LEUKOCYTE ESTERASE Trace (Normal) UA - NITRITE Negative (Normal) URINE UROBILINGN LINDSEY TIMED 2 mg/dL (Normal) UA - PROTEIN Negative mg/dL (Normal) UA - PH 6.0 (Normal) UA - BLOOD Hemolyzed Trace (Normal) UA - SPECIFIC GRAVITY 1.025 (Normal) UA - KETONES Negative mg/dL (Normal) UA - BILIRUBIN Negative (Normal) UA - GLUCOSE Negative (Normal) 26-Shl-858848:13 HgA1C , Office (51244) HgA1C , Office 6.8 % (Normal) Range: 4.6 - 7.1 24-Rno-218463:34 VITAMIN B-12 (CYANOCOBALAMIN) Comments: PATIENT NOT FASTINGPERFORMED BY: Red Swoosh [employer] EcoEnergyNov[facility] [id number] (75712) Vitamin B12 1547 pg/mL (Abnormal) Range: 232-1245 77-Ngv-958202:34 Metabolic Panel, Comprehensive Comments: PATIENT NOT FASTINGPERFORMED BY: [employer] Uqgonh0498 Gen [facility] CigNovant Health [facility] [id number] (46393) ALT (SGPT) 26 [iU]/L (Normal) Range: 0-32 [...] Glucose, Serum 131 mg/dL (Abnormal) Range: 65-99 92-Eah-743605:34 CBC WITH MANUAL DIFF Comments: PATIENT NOT FASTINGPERFORMED BY: LabCorewell [facility]6370 [facility] [id number] Information: NURSE DRAW (90490) Immature Grans (Abs) 0.0 {x10E3/uL} (Normal) Range: [...] 3.77-5.28 WBC 8.0 {x10E3/uL} (Normal) Range: 3.4-10.8 34-Yws-664019:34 PARATHORMONE (04790) Comments: PATIENT NOT FASTINGPERFORMED BY: [facility] Bjwawd3[address] [facility] [id number]; fu 2-5-18 DB PTH, Intact 9 pg/mL (Abnormal) Range: 15-65 96-Yok-641561:10 URINE ELIN CULTURE-IDENTIFICATN Comments: PATIENT NOT FASTINGPERFORMED BY: [facility] Xjjtjn6647 [facility] [id number] (23883) Result 1 BETAGG (Abnormal) Comments: Beta hemolytic [...] flora2,000 Colonies/mL Urine Final report (Abnormal) Culture,Comprehensive 52-Wwg-147782:10 MICROALBUMIN: CREATININE RATIO Comments: PATIENT NOT FASTINGPERFORMED BY: [facility] Xvkgaf4813 [facility] [id number] (35793) AND (14883) Alb/Creat Ratio 21.8 {mg/g_creat} (Normal) Range: 0.0-30.0 Albumin, Urine 17.5 ug/mL (Normal) Creatinine, Urine 80.4 mg/dL (Normal) 13-Erm-860982:10 URINALYSIS (99726) Comments: PATIENT NOT FASTINGPERFORMED BY: [facility] Sjrvgr2420 [facility] [id number] Information: SRC:UC Microscopic Examination MICNIP (Normal) Comments: Microscopic not indicated and not performed. Nitrite, Urine Negative (Normal) Urobilinogen,Semi-Qn 0.2 mg/dL (Normal) Range: 0.2-1.0 Bilirubin Negative (Normal) Occult Blood Negative (Normal) Ketones Negative (Normal) Glucose Negative (Normal) Protein Negative (Normal) WBC Esterase Negative (Normal) Appearance Clear (Normal) Urine-Color Yellow (Normal) pH 7.0 (Normal) Range: 5.0-7.5 Specific [place] 1.016 (Normal) Range: 1.005-1.030 86-Mjk-189042:04 URINE ELIN CULTURE-IDENTIFICATN Comments: PATIENT WAS FASTINGPERFORMED BY: [employer] [id number] BY: [employer]70 Lopez RoadDublin [place] [id number] (91734) Result 1 NG36 (Normal) Comments: No growth in 36 - 48 hours. Urine Culture,Comprehensive Final report (Normal) 88-Jbz-525556:54 Urinalysis, Office (60666) UA - LEUKOCYTE ESTERASE Trace (Normal) UA - NITRITE Negative (Normal) URINE UROBILINGN LINDSEY TIMED Normal mg/dL (Normal) UA - PROTEIN Negative mg/dL (Normal) UA - PH 6.5 (Normal) UA - BLOOD non-hemolyzed trace (Normal) UA - SPECIFIC GRAVITY 1.010 (Normal) UA - KETONES Negative mg/dL (Normal) UA - BILIRUBIN Negative (Normal) UA - GLUCOSE Negative (Normal) 87-Zxc-290340:04 PARATHORMONE (64580) Comments: PATIENT WAS FASTINGPERFORMED BY: [employer] [id number] BY: [employer] Wnzsnl4963 Lopez RoadDublin [place] [id number] PTH, Intact 9 pg/mL (Abnormal) Range: 15-65 74-Stj-003261:04 Vitamin B-12 Comments: PATIENT WAS FASTINGPERFORMED BY: [employer] [id number] BY: [employer] S[employer] Rbofpe8357 Lopez RoadDublin [place] [id number] (cyanocobalamin) (10879) Vitamin B12 1770 pg/mL (Abnormal) Range: 211-946 39-Nfb-280151:04 METABOLIC PANEL, Comments: PATIENT WAS FASTINGPERFORMED BY: [employer]OT[address] [id number] BY: [employer] Qumhtr1572 Lopez RoadDublin [place] [id number] COMPREHENSIVE (89041) ALT (SGPT) 27 [iU]/L (Normal) Range: 0-32 [...] Glucose, Serum 108 mg/dL (Abnormal) Range: 65-99 17-Acm-014341:04 LIPOPROTEIN, BLD, BY NMR Comments: PATIENT WAS FASTINGPERFORMED BY: BN [facility] Bfhvmvvukh7780 [facility] [id number] BY: CB [facility] Czivjc1777 [facility] [id number] Information: SRC:DANGELO (58420) LP-IR Score 57 (Abnormal) Comments: INSULIN RESISTANCE MARKER <--Insulin Sensitive Insulin Resistant--> Percentile in Reference PopulationInsulin Resistance ScoreLP-IR Score Low 25th 50th 75th High <27 27 45 63 >63LP-IR Score is inaccurate if patient is non-fasting. .The LP-IR score is a laboratory developed i [facility] that has beenassociated with insulin resistance and [...] 1600 - 2000 Very High > 2000 74-Lvt-576945:04 CBC with auto diff Comments: PATIENT WAS FASTINGPERFORMED BY: Int[employer]OT[address] [id number] BY: LabCoSaint Clare's Hospital at SussexIuxfqv5114 [facility] [id number] (50014) Immature Grans (Abs) 0.0 {x10E3/uL} (Normal) Range: [...] 3.77-5.28 WBC 7.6 {x10E3/uL} (Normal) Range: 3.4-10.8 90-Lnf-502543:04 TSH (48352) Comments: PATIENT WAS FASTINGPERFORMED BY: [address] [id number] BY: [facility]6370 [facility] [id number] TSH 2.110 {uIU/mL} (Normal) Range: 0.450-4.500 47-Iky-974101:15 HgA1C , Office (64078) HgA1C , Office 6.9 % (Normal) Range: 4.6 - 7.1 25-Sqm-770052:30 CREATININE BLOOD (45134) Comments: PATIENT NOT FASTINGPERFORMED BY: [place] 7405070 [facility] [id number] BY: [address] [id number] eGFR If Africn Am 58 mL/min/1.73 (Abnormal) eGFR If NonAfricn Am 50 mL/min/1.73 (Abnormal) Creatinine, Serum 1.14 mg/dL (Abnormal) Range: 0.57-1.00 00-Uvb-458316:30 Magnesium (57890) Comments: PATIENT NOT FASTINGPERFORMED BY: [place] 7405070 [facility] [id number] BY: [address] [id number] Magnesium, Serum 1.9 mg/dL (Normal) Range: 1.6-2.3 99-Gmn-107018:30 TSH (98071) Comments: PATIENT NOT FASTINGPERFORMED BY: [place]zyChristopher [place] 9657570 [facility] [id number] BY: [address] [id number] TSH 1.950 {uIU/mL} (Normal) Range: 0.450-4.500 01-Nwd-822577:30 Uric Acid Blood (20676) Comments: PATIENT NOT FASTINGPERFORMED BY: [place] 7405070 [facility] [id number] BY: [address] [id number] Uric Acid, Serum 8.3 mg/dL (Abnormal) Range: 2.5-7.1 Comments: Therapeutic target for gout patients: <6.0 74-Jhc-202412:30 Methymalonic Acid, Serum Comments: PATIENT NOT FASTINGPERFORMED BY: LabCoSaint Clare's Hospital at SussexUzvbhh1411 [facility] [id number] BY: [address] [id number] (13295) Methylmalonic Acid, Serum 157 nmol/L (Normal) Range: 0-378 37-Qoy-421699:30 Vitamin B-12 Comments: PATIENT NOT FASTINGPERFORMED BY: LabCoSaint Clare's Hospital at SussexLietvd6086 [facility] [id number] BY: Lab[address] [id number] (cyanocobalamin) (45638) Vitamin B12 1956 pg/mL (Abnormal) Range: 211-946 46-Ixv-876602:00 Cytology, Body Fluid / CSF Comments: [facility] Tcfugynxyl7300 [facility] [place], [place], [address] CYTOLOGY,BF/CSF SEE PATHOLOGY REPORT Comments: Specimen submitted to [facility]ical [facility]. (Normal) 29-Mgf-845869:0 CYTOSPIN ON FLUID See Note (Normal) Comments: [facility] Vfjujrbcsd[address] [facility] [facility] [address] [place], [address] 0 Comments: Patient: LUIS CARLOS WILLS : 1950 (66/F) Acct Num: [id number] Phys: Ced COX,Rm Frost Unit Num: [id number] Loc: LABSPEC Specimen: [id number] Received: 10/25/16 - 1215 Sp ec Type: CYSPIN FL TISSUES TISSUES: CYTOLOGY GROSS Received is 70 ml of clear yellow fluid labeled with the patient's name and and designated per the requisition as urine. Sub mitted for cytology preparation. 10/25/16 TC:5 CPT: 04581 CYTOLOGY STUDY Slides are reviewed. The specimen predominantly consists of benign squamous cells, a few urothelial cells, neutrophils and organisms consistent with bacteria. DIAGNOSIS CYTOLOGY Urine for cytology (cytospin): Negative for malignant cells. SJ:nellie 10/26/16 HEADER OPERATION: Not noted PRE-OP DIAGNOSIS : Hematuria R31.9 TISSUE SUBMITTED: Urine for cytology Signed Khoa Wang 10/26/16 <signature on file> 6-Stc-547591:10 Microscopic Examination Comments: PERFORMED BY: [employer] [facility] [id number] Bacteria Few (Normal) Mucus Threads Present (Normal) Crystal Type Calcium Oxalate (Normal) Crystals Present (Abnormal) Epithelial Cells (non renal) 0-10 {/hpf} (Normal) Range: 0 - 10 RBC 0-2 {/hpf} (Normal) Range: 0 - 2 WBC 0-5 {/hpf} (Normal) Range: 0 - 5 1-Blf-501106:15 Urinalysis, Office (37028) UA - NITRITE Negative (Normal) UA - LEUKOCYTE ESTERASE Trace (Normal) URINE UROBILINGN LINDSEY TIMED Normal mg/dL (Normal) UA - PROTEIN Negative mg/dL (Normal) UA - PH 5 (Abnormal) UA - BLOOD Hemolyzed Trace (Normal) UA - SPECIFIC GRAVITY 1.015 (Normal) UA - KETONES Negative mg/dL (Normal) UA - BILIRUBIN Negative (Normal) UA - GLUCOSE Negative (Normal) 7-Ouq-709487:32 KQBJW-JRHPAFLQOPV-UMLCR (97366) Comments: PERFORMED BY: [facility] [id number] BY: [address] [id number] AFP, Serum, Tumor Marker 2.6 ng/mL (Normal) Range: 0.0-8.3 Comments: Eufemia ECLIA methodology :32 Metabolic Panel, Basic Comments: PERFORMED BY: IntelliDOTSaint Clare's Hospital at SussexNgzhaq4442 [facility] [id number] BY: [address] [id number] Information: [id number] (91504) Calcium, Serum 9.3 mg/dL (Normal) Range: 8.7-10.3 [...] :32 T3, TOTAL (TRIDOTHYRONINE) Comments: PERFORMED BY: [facility] [id number] BY: Intelli[employer] [id number] (42153) Triiodothyronine (T3) 87 ng/dL (Normal) Range: 71-180 :32 TSH (53032) Comments: PERFORMED BY: [employer] [place] [address] [id number] BY: Intelli[employer] [id number] TSH 0.267 {uIU/mL} (Abnormal) Range: 0.450-4.500 :32 Methymalonic Acid, Serum Comments: PERFORMED BY: [employer] [place] [address] [id number] BY: [address] [id number] (58699) Methylmalonic Acid, Serum 134 nmol/L (Normal) Range: 0-378 :32 Vitamin B-12 (cyanocobalamin) Comments: PERFORMED BY: [employer]70 [facility] [id number] BY: [address] [id number] (10816) Vitamin B12 1073 pg/mL (Abnormal) Range: 211-946 :32 HGB A1C (09308) Comments: PERFORMED BY: [address] [id number] BY: [address] [id number] Hemoglobin A1c 6.5 % (Abnormal) Range: 4.8-5.6 Comments: . Pre-diabetes: 5.7 - 6.4 Diabetes: >6.4 Glycemic control for adults with diabetes: <7.0 :32 HEPATITIS C ANTIBODY Comments: PERFORMED BY: [address] [id number] BY: [address] [id number] (89102) Hep C Virus Ab <0.1 {s/co_ratio} (Normal) Range: 0.0-0.9 Comments: Negative: < 0.8 Indeterminate: 0.8 - 0.9 Positive: > 0.9 . The CDC recommends that a positive HCV antibody result be followed up with a HCV Nucleic Acid Amplification test (375678). 7-Gqv-546404:10 URINE ELIN CULTURE-IDENTIFICATN Comments: PERFORMED BY: [address] [id number] (03743) Result 1 MUG (Normal) Comments: Mixed urogenital flora10,000-25,000 colony forming units per mL Urine Final report (Normal) Culture,Comprehensive 6-Swi-425515:10 URINALYSIS (39044) Comments: PERFORMED BY: [address] [id number] Information: [id number] SRC:UVC Microscopic Examination See below: (Normal) Comments: Microscopic was indicated and was performed. Nitrite, Urine Negative (Normal) Urobilinogen,Semi-Qn 0.2 mg/dL (Normal) Range: 0.2-1.0 Bilirubin Negative (Normal) Occult Blood Negative (Normal) Ketones Negative (Normal) Glucose Negative (Normal) Protein Negative (Normal) WBC Esterase 1+ (Abnormal) Appearance Clear (Normal) Urine-Color Yellow (Normal) pH 6.0 (Normal) Range: 5.0-7.5 Specific [place] 1.014 (Normal) Range: 1.005-1.030 Plan of Care [...] SEBORRHEIC KERATOSIS Planned Observations HEPATIC FUNCTION PANEL (04797)Indication: Fatty liver On: 34-Ysc-431578:56 Request Vitamin B-12 (cyanocobalamin) (57988)Indication: Vitamin B12 deficiency On: 39-Ghc-991622:56 Request TSH (18650)Indication: Adult hypothyroidism On: :28 Request LIPID PANEL (69107)Indication: Type II diabetes mellitus On: 08-Txh-291701:28 Request METABOLIC PANEL, COMPREHENSIVE (14913)Indication: Type II diabetes mellitus On: 19-Rxh-729281:28 Request Metabolic Panel, Comprehensive (79013)Indication: Abnormal blood creatinine level On: 47-Aly-690997:23 Request Comments: re check in 8 weeks TSH (34697)Indication: Adult hypothyroidism On: 83-Kcg-557143:23 Request Comments: re check in 8 weeks TSH (08647)Indication: Adult hypothyroidism On: :59 Request CREATININE CLEARANCE (67160)Indication: Renal insufficiency On: :49 Request Total Protein,24 Hour Urine (05064)Indication: Renal insufficiency On: :49 Request Metabolic Panel, Basic (87431)Indication: Renal insufficiency On: 9-Aqe-599491:49 Request Metabolic Panel, Comprehensive (21022)Indication: Abnormal blood creatinine level On: 53-Wzk-621537:31 Request Comments: re check in 8 weeks URINE ELIN CULTURE-IDENTIFICATN (26041)Indication: Flank pain On: :02 Request URINALYSIS (36436)Indication: Flank pain On: :02 Request TSH (63987)Indication: Adult hypothyroidism On: :48 Request METABOLIC PANEL, COMPREHENSIVE (54877)Indication: Type II diabetes mellitus On: :48 Request CBC W/AUTO DIFF WBC (68708)Indication: Type II diabetes mellitus On: :48 Request Uric Acid Blood (30991)Indication: Elevated uric acid in blood On: :43 Request T4, FREE (THYROXINE) (47598)Indication: History of Graves' disease On: 9-Ewb-104979:55 Request Comments: re check in 8 weeks T3, FREE (TRIDOTHYRONINE) (19635)Indication: History of Graves' disease On: 9-Jcm-948086:55 Request Comments: re check in 8 weeks TSH (81662)Indication: History of Graves' disease On: 0-Ots-580410:54 Request Comments: re check in 8 weeks URINE ELIN CULTURE-IDENTIFICATN (51244)Indication: Acute cystitis without hematuria On: 38-Hvw-359161:42 Request Planned Procedures Flu Vaccine (Quadrivalent) On: 14-Jun-2018 Intent 69518Su: Rowan Mott MD Comments: Lot #:[id number] date: 4-41-45Fujoxd given:0.5mlRoute: IMSite given:L DltdGiven by: ElaineVIS and ABN signed [employer] Rowan Mott MD CT - Abdomen & Pelvis Stone On: 02-Oct-2017 Intent ProtocolBy: Rowan Mott MD, MD, Dana M Flu Vaccine (Quadrivalent) On: 20-Jun-2017 Intent 87438Zp: Rowan Mott MD Comments: QUAD flu 0.5ml injectionlot number: [id number]: 4/2018R Deltoid IMpt tolerated wellAD SIGNAL MECHANIC Rowan Mott MD SCREENING DIGITAL TOMOSYNTHESIS On: 20-Apr-2017 Intent OF BREAST (09497)By: Rowan Mott MD, MD, Dana M DEXA SCAN AXIAL SKELETON On: 20-Apr-2017 Intent (84535)By: Rowan Mott MD, MD, Dana M EMGBy: [...] Needed)By: Rowan Mott MD Comments: do at itta bena follow up cysts. Rowan Mott MD MAMMOGRAM BREAST BILATERAL On: 19-Sep-2016 Intent SCREENING DIGITAL (16712)By: Rowan Mott MD, MD, Dana M Instructions [...] in bathroom. [facility]: PAP smear (over 5 years ago), mammography (due jul 2017) and colonoscopy (about 3 years ago). The patient does not have durable power of deputy prosecuting attorney or living will. The patient has noticed [...] 11:44 [facility] Payers MedicareSanford Health PlanKATHLEEN CHELSY richardson guarantor
--- OUTSIDE RECORDS SUMMARY | 2018-11-16 17:55 | XMS RPT_ITS | Continuity of Care Document ---
:1950 Author Organization [facility] Address [facility] [facility] [address] [place] [address] Phone Care Team Providers Name Role Phone Rowan Mott MD Unavailable Hearing Services-- Cristy Colindres Unavailable Dr. Ehsan Recinos Unavailable [facility] Unavailable Alexander Joy Tawny Unavailable VALORIE [...] HPV 2016 negative, had total hysterectomy BSO, fsxvgtceasi=6564 (normal), Burn's scale=22 (mild depression) see dentist [...] used zoloft andhelp. some seasonal came from [facility] and now cloudy all time. she [...] 5 episodes since 2004. work up in [facility]. not ear or menieries. MRI negative of brain. ENG negative. next step was neurology but better so not go. got Mediamorph shot and gone spring. Status: Active Vitamin [...] MD, Dana M Start : 02-Oct-2017 Active Simvastatin 20 MG Oral Tablet 1 [...] days Quantity: 2 Kit Refills: 0 Ordered:13-Feb-2018 VernVALORIE Start : 12-Dec-2017 End : 13-Feb-2018 Inactive [...] Keratosis, actinic) (L57.0, 702.0) Comments: on right protestant area Status: Resolved as of 12-Dec-2017 Acute cystitis without hematuria (N30.00, 595.0) Status: Inactive as of 14-Nov-2016 Adnexal mass (N94.9, 625.8) Comments: Dr leidy TAY good. Status: Resolved as of 12-Dec-2017 Dysuria [...] as of 18-Sep-2017 Redness of eye, right (H57.8, 379.93) Comments: ? scratch sclera. ? allergies. 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 Comments: walk daily about 20 minutes. Status: Active Living Situation Comments: lives with spouse Scientologist-important Status: Active No Drug Use Status: Active [...] 2.01 m2 Results Date Description Value Details 98-Utt-682687:29 HgA1C , Office (94541) HgA1C , Office 6.6 % (Normal) Range: 4.6 - 7.1 81-Qem-703411:36 EBV Panel (05962) Comments: PATIENT NOT FASTINGPERFORMED BY: PayEase Kemvig2514 [address] [facility] [id number] Interpretation: SPRCS (Normal) Comments: EBV Interpretation Chart [...] - 43.9 Positive >43.9 :36 CBC (AUTO) (45393) Comments: PATIENT NOT FASTINGPERFORMED BY: QwilrMiners' Colfax Medical CenterDcfzqm6935 [facility] [id number] Platelets 228 {x10E3/uL} (Normal) Range: 150-379 RDW 15.7 % (Abnormal) Range: 12.3-15.4 MCHC 33.7 g/dL (Normal) Range: 31.5-35.7 MCH 28.8 pg (Normal) Range: 26.6-33.0 MCV 86 fL (Normal) Range: 79-97 Hematocrit 35.3 % (Normal) Range: 34.0-46.6 Hemoglobin 11.9 g/dL (Normal) Range: 11.1-15.9 RBC 4.13 {x10E6/uL} (Normal) Range: 3.77-5.28 WBC 7.3 {x10E3/uL} (Normal) Range: 3.4-10.8 77-Zzk-896047:36 METABOLIC PANEL, COMPREHENSIVE Comments: PATIENT NOT FASTINGPERFORMED BY: [facility] Saionj9137 [facility] [id number] (34873) ALT (SGPT) 34 [iU]/L (Abnormal) Range: 0-32 [...] 8-27 Glucose 130 mg/dL (Abnormal) Range: 65-99 91-Qhk-546375:36 Folate (85917) Comments: PATIENT NOT FASTINGPERFORMED BY: [facility] Blnbwd0564 [facility] [place] [id number] Folate (Folic Acid), Serum >20.0 ng/mL (Normal) Comments: A serum folate concentration of less than 3.1 ng/mL isconsidered to represent clinical deficiency. 85-Hhb-036480:36 VITAMIN B-12 (CYANOCOBALAMIN) Comments: PATIENT NOT FASTINGPERFORMED BY: [facility] Xntups6120 [address] [facility] [place] [id number] (63243) Vitamin B12 >2000 pg/mL (Abnormal) Range: 232-1245 80-Whc-076451:36 SED RATE ERYTHROCYTE (70286) Comments: PATIENT NOT FASTINGPERFORMED BY: [facility] Ebtraq9983 [address] [facility] [place] [id number] Sedimentation Rate-Westergren 2 mm/h (Normal) Range: 0-40 05-Jza-566048:36 TSH (22694) Comments: PATIENT NOT FASTINGPERFORMED BY: [facility] Piqqpu7474 [facility] [place] [id number] TSH 1.230 {uIU/mL} (Normal) Range: 0.450-4.500 37-Xbx-353218:34 HgA1C , Office (52770) HgA1C , Office 6.7 % (Normal) Range: 4.6 - 7.1 13-Oqj-669377:40 Microscopic Examination Comments: PATIENT NOT FASTINGPERFORMED BY: [facility] Yjbixk7558 [address] [facility] [place] [id number] Bacteria Few (Normal) Mucus Threads Present (Normal) Cast Type Hyaline casts (Normal) Casts Present {/lpf} (Abnormal) Epithelial Cells (non renal) 0-10 {/hpf} (Normal) Range: 0 - 10 RBC None seen {/hpf} (Normal) Range: 0 - 2 WBC 0-5 {/hpf} (Normal) Range: 0 - 5 25-Blt-295978:50 Urinalysis, Office (67200) UA - LEUKOCYTE ESTERASE Trace (Normal) UA - NITRITE Negative (Normal) URINE UROBILINGN LINDSEY TIMED 2 mg/dL (Normal) UA - PROTEIN Negative mg/dL (Normal) UA - PH 8.0 (Normal) UA - BLOOD Hemolyzed Trace (Normal) UA - SPECIFIC GRAVITY 1.015 (Normal) UA - KETONES Negative mg/dL (Normal) UA - BILIRUBIN Negative (Normal) UA - GLUCOSE Negative (Normal) 96-Kso-155158:40 URINE ELIN CULTURE-IDENTIFICATN Comments: PATIENT NOT FASTINGPERFORMED BY: Prism MicrowaveCoJefferson [facility])Jgecjb4593 [facility] [id number] (24295) Result 1 MUG (Normal) Comments: Mixed urogenital flora1,000 Colonies/mL Urine Culture,Comprehensive Final report (Normal) 84-Wli-114927:40 URINALYSIS (01057) Comments: PATIENT NOT FASTINGPERFORMED BY: LabSelect [facility]ty Hospital6370 [facility] [id number] Information: SRC: Microscopic Examination See below: (Normal) Comments: Microscopic was indicated and was performed. Nitrite, Urine Negative (Normal) Urobilinogen,Semi-Qn 0.2 mg/dL (Normal) Range: 0.2-1.0 Bilirubin Negative (Normal) Occult Blood Negative (Normal) Ketones Negative (Normal) Glucose Negative (Normal) Protein Negative (Normal) WBC Esterase Trace (Abnormal) Appearance Clear (Normal) Urine-Color Yellow (Normal) pH 8.0 (Abnormal) Range: 5.0-7.5 Specific Machias 1.008 (Normal) Range: 1.005-1.030 12-Edu-799369:21 URINE ELIN CULTURE-IDENTIFICATN Comments: PATIENT NOT FASTINGPERFORMED BY: [facility]CoJeff[facility])Fkrwub3054 [facility] [id number] Information: SRC: (57371) Result 1 MUG (Normal) Comments: Mixed urogenital flora10,000-25,000 colony forming units per mL Urine Final report (Normal) Culture,Comprehensive 85-Ynx-354887:14 Urinalysis, Office (63035) UA - LEUKOCYTE ESTERASE Trace (Normal) UA - NITRITE Negative (Normal) URINE UROBILINGN LINDSEY TIMED 2 mg/dL (Normal) UA - PROTEIN Negative mg/dL (Normal) UA - PH 6.0 (Normal) UA - BLOOD Hemolyzed Trace (Normal) UA - SPECIFIC GRAVITY 1.025 (Normal) UA - KETONES Negative mg/dL (Normal) UA - BILIRUBIN Negative (Normal) UA - GLUCOSE Negative (Normal) 19-Sgp-564635:13 HgA1C , Office (65288) HgA1C , Office 6.8 % (Normal) Range: 4.6 - 7.1 05-Dfw-736822:34 VITAMIN B-12 (CYANOCOBALAMIN) Comments: PATIENT NOT FASTINGPERFORMED BY: [facility]CoJefferson [facility])Ipsylr2568 [facility] [id number] (42483) Vitamin B12 1547 pg/mL (Abnormal) Range: 232-1245 07-Vbj-465237:34 Metabolic Panel, Comprehensive Comments: PATIENT NOT FASTINGPERFORMED BY: [facility]CoJefferson [facility])Fiursh0757 [facility] [id number] (80691) ALT (SGPT) 26 [iU]/L (Normal) Range: 0-32 [...] Glucose, Serum 131 mg/dL (Abnormal) Range: 65-99 82-Nto-052677:34 CBC WITH MANUAL DIFF Comments: PATIENT NOT FASTINGPERFORMED BY: [facility] Pzdgcs1177 [facility] [id number] Information: NURSE DRAW (85551) Immature Grans (Abs) 0.0 {x10E3/uL} (Normal) Range: [...] 3.77-5.28 WBC 8.0 {x10E3/uL} (Normal) Range: 3.4-10.8 56-Hxq-009932:34 PARATHORMONE (44418) Comments: PATIENT NOT FASTINGPERFORMED BY: LabCoJefferson [facility])Lktbpm0452 [facility] [id number]; fu 2--18 DB PTH, Intact 9 pg/mL (Abnormal) Range: 15-65 08-Uzw-889824:10 URINE ELIN CULTURE-IDENTIFICATN Comments: PATIENT NOT FASTINGPERFORMED BY: [facility]E[employer] [facility] [id number] (99259) Result 1 BETAGG (Abnormal) Comments: Beta hemolytic [...] flora2,000 Colonies/mL Urine Final report (Abnormal) Culture,Comprehensive 58-Fmg-594972:10 MICROALBUMIN: CREATININE RATIO Comments: PATIENT NOT FASTINGPERFORMED BY: Qwilr Eofcuz5669 [facility] [id number] (60559) AND (95224) Alb/Creat Ratio 21.8 {mg/g_creat} (Normal) Range: 0.0-30.0 Albumin, Urine 17.5 ug/mL (Normal) Creatinine, Urine 80.4 mg/dL (Normal) 39-Rlb-333467:10 URINALYSIS (22949) Comments: PATIENT NOT FASTINGPERFORMED BY: Qwilr Szzgav2541 [facility] [id number] Information: SRC:UC Microscopic Examination MICNIP (Normal) Comments: Microscopic not indicated and not performed. Nitrite, Urine Negative (Normal) Urobilinogen,Semi-Qn 0.2 mg/dL (Normal) Range: 0.2-1.0 Bilirubin Negative (Normal) Occult Blood Negative (Normal) Ketones Negative (Normal) Glucose Negative (Normal) Protein Negative (Normal) WBC Esterase Negative (Normal) Appearance Clear (Normal) Urine-Color Yellow (Normal) pH 7.0 (Normal) Range: 5.0-7.5 Specific Machias 1.016 (Normal) Range: 1.005-1.030 81-Vww-308056:04 URINE ELIN CULTURE-IDENTIFICATN Comments: PATIENT WAS FASTINGPERFORMED BY: AFFiRiS[address] [id number] BY: PayEase Qnykjb1582 Lopez RoadDublin [place] [id number] (02276) Result 1 NG36 (Normal) Comments: No growth in 36 - 48 hours. Urine Culture,Comprehensive Final report (Normal) 07-Yoc-451320:54 Urinalysis, Office (03960) UA - LEUKOCYTE ESTERASE Trace (Normal) UA - NITRITE Negative (Normal) URINE UROBILINGN LINDSEY TIMED Normal mg/dL (Normal) UA - PROTEIN Negative mg/dL (Normal) UA - PH 6.5 (Normal) UA - BLOOD non-hemolyzed trace (Normal) UA - SPECIFIC GRAVITY 1.010 (Normal) UA - KETONES Negative mg/dL (Normal) UA - BILIRUBIN Negative (Normal) UA - GLUCOSE Negative (Normal) 12-Hme-763192:04 PARATHORMONE (68163) Comments: PATIENT WAS FASTINGPERFORMED BY: AFFiRiS[address] [id number] BY: Pay[employer] Vcmnvj1009 Lopez RoadDublin [place] [id number] PTH, Intact 9 pg/mL (Abnormal) Range: 15-65 73-Dlp-226986:04 Vitamin B-12 Comments: PATIENT WAS FASTINGPERFORMED BY: Qwilr[address] [id number] BY: PayEase Pavazi2731 Lopez RoadDublin [place] [id number] (cyanocobalamin) (06981) Vitamin B12 1770 pg/mL (Abnormal) Range: 211-946 27-Kta-325168:04 METABOLIC PANEL, Comments: PATIENT WAS FASTINGPERFORMED BY: Qwilr[address] [id number] BY: Pay[employer] Qzaqws4651 Lopez RoadDublin [place] [id number] COMPREHENSIVE (41368) ALT (SGPT) 27 [iU]/L (Normal) Range: 0-32 [...] Glucose, Serum 108 mg/dL (Abnormal) Range: 65-99 12-Jyi-847470:04 LIPOPROTEIN, BLD, BY NMR Comments: PATIENT WAS FASTINGPERFORMED BY: BN [facility] [address] [id number] BY: CB [facility] [address] [id number] Information: SRC:DANGELO (97645) LP-IR Score 57 (Abnormal) Comments: INSULIN RESISTANCE MARKER <--Insulin Sensitive Insulin Resistant--> Percentile in Reference PopulationInsulin Resistance ScoreLP-IR Score Low 25th 50th 75th High <27 27 45 63 >63LP-IR Score is inaccurate if patient is non-fasting. .The LP-IR score is a laboratory developed i [facility] that has beenassociated with insulin resistance and [...] were developed and their performance characteristicsdetermined by [employer]. These assays have not been cleared by [...] 1600 - 2000 Very High > 2000 08-Pxp-377135:04 CBC with auto diff Comments: PATIENT WAS FASTINGPERFORMED BY: [address] [id number] BY: [place] 7015570 [facility] [id number] (78430) Immature Grans (Abs) 0.0 {x10E3/uL} (Normal) Range: [...] 3.77-5.28 WBC 7.6 {x10E3/uL} (Normal) Range: 3.4-10.8 50-Shz-630812:04 TSH (08315) Comments: PATIENT WAS FASTINGPERFORMED BY: [address] [id number] BY: [facility]6370 [facility] [id number] TSH 2.110 {uIU/mL} (Normal) Range: 0.450-4.500 81-Mbq-888289:15 HgA1C , Office (39571) HgA1C , Office 6.9 % (Normal) Range: 4.6 - 7.1 30-Kpw-718671:30 CREATININE BLOOD (99919) Comments: PATIENT NOT FASTINGPERFORMED BY: QwilrBobby Ville 7236670 [facility] [id number] BY: [address] [id number] eGFR If Africn Am 58 mL/min/1.73 (Abnormal) eGFR If NonAfricn Am 50 mL/min/1.73 (Abnormal) Creatinine, Serum 1.14 mg/dL (Abnormal) Range: 0.57-1.00 48-Vvn-772979:30 Magnesium (39110) Comments: PATIENT NOT FASTINGPERFORMED BY: Qwilr[address] [id number] BY: [address] [id number] Magnesium, Serum 1.9 mg/dL (Normal) Range: 1.6-2.3 78-Ano-836964:30 TSH (46441) Comments: PATIENT NOT FASTINGPERFORMED BY: Qwilr[address] [id number] BY: [address] [id number] TSH 1.950 {uIU/mL} (Normal) Range: 0.450-4.500 25-Irc-171702:30 Uric Acid Blood (75152) Comments: PATIENT NOT FASTINGPERFORMED BY: Prism MicrowaveMarissa [place] 3039070 [facility] [id number] BY: [address] [id number] Uric Acid, Serum 8.3 mg/dL (Abnormal) Range: 2.5-7.1 Comments: Therapeutic target for gout patients: <6.0 12-Onp-062034:30 Methymalonic Acid, Serum Comments: PATIENT NOT FASTINGPERFORMED BY: Prism Microwave[address] [place] [id number] BY: LabCoValerie V[place] 425407 [facility] [id number] (13751) Methylmalonic Acid, Serum 157 nmol/L (Normal) Range: 0-378 58-Mkt-689389:30 Vitamin B-12 Comments: PATIENT NOT FASTINGPERFORMED BY: LabCoBobby Ville 7236670 [facility] [id number] BY: LabCoValerie V[place] 425407 [facility] [id number] (cyanocobalamin) (53254) Vitamin B12 1956 pg/mL (Abnormal) Range: 211-946 59-Wef-146013:00 Cytology, Body Fluid / CSF Comments: [facility] [address] [place], [address] CYTOLOGY,BF/CSF SEE PATHOLOGY REPORT Comments: Specimen submitted to Anatomical Pathology Department fortesting. (Normal) 69-Ese-896108:0 CYTOSPIN ON FLUID See Note (Normal) Comments: [facility] [address] [place], [address] 0 Comments: Patient: LUIS CARLOS WILLS : 1950 (66/F) Acct Num: [id number] Phys: Ced COX,Rm Frost Unit Num: [id number] Loc: LABSPEC Specimen: [id number] Received: 10/25/16 - 1215 Sp ec Type: CYSPIN FL TISSUES TISSUES: CYTOLOGY GROSS Received is 70 ml of clear yellow fluid labeled with the patient's name and and designated per the requisition as urine. Sub mitted for cytology preparation. 10/25/16 TC:5 CPT: 21709 CYTOLOGY STUDY Slides are reviewed. The specimen predominantly consists of benign squamous cells, a few urothelial cells, neutrophils and organisms consistent with bacteria. DIAGNOSIS CYTOLOGY Urine for cytology (cytospin): Negative for malignant cells. SJ:nellie 10/26/16 HEADER OPERATION: Not noted PRE-OP DIAGNOSIS : Hematuria R31.9 TISSUE SUBMITTED: Urine for cytology Signed Khoa Wang 10/26/16 <signature on file> 1-Ehz-149701:10 Microscopic Examination Comments: PERFORMED BY: [facility]rJefferson [facility])Ajfzlb1654 [facility] [id number] Bacteria Few (Normal) Mucus Threads Present (Normal) Crystal Type Calcium Oxalate (Normal) Crystals Present (Abnormal) Epithelial Cells (non renal) 0-10 {/hpf} (Normal) Range: 0 - 10 RBC 0-2 {/hpf} (Normal) Range: 0 - 2 WBC 0-5 {/hpf} (Normal) Range: 0 - 5 :15 Urinalysis, Office (02115) UA - NITRITE Negative (Normal) UA - LEUKOCYTE ESTERASE Trace (Normal) URINE UROBILINGN LINDSEY TIMED Normal mg/dL (Normal) UA - PROTEIN Negative mg/dL (Normal) UA - PH 5 (Abnormal) UA - BLOOD Hemolyzed Trace (Normal) UA - SPECIFIC GRAVITY 1.015 (Normal) UA - KETONES Negative mg/dL (Normal) UA - BILIRUBIN Negative (Normal) UA - GLUCOSE Negative (Normal) 8-Klj-754574:32 UMAPS-NYXJTVEMNTN-AKZYS (36984) Comments: PERFORMED BY: Q[facility]rJefferson [facility])Suoabo5124 [facility] [id number] BY: [address] [id number] AFP, Serum, Tumor Marker 2.6 ng/mL (Normal) Range: 0.0-8.3 Comments: Eufemia ECLIA methodology 8-Sxz-725923:32 Metabolic Panel, Basic Comments: PERFORMED BY: QwilrJefferson [facility])Wtbgoe20[address] [place] [address] [id number] BY: [address] [id number] Information: X75319 (75355) Calcium, Serum 9.3 mg/dL (Normal) Range: 8.7-10.3 [...] Glucose, Serum 69 mg/dL (Normal) Range: 65-99 3-Guq-981829:32 T3, TOTAL (TRIDOTHYRONINE) Comments: PERFORMED BY: [employer]play [facility] [id number] BY: [address] [id number] (19820) Triiodothyronine (T3) 87 ng/dL (Normal) Range: 71-180 7-Nir-062542:32 TSH (55020) Comments: PERFORMED BY: Bartlett Holdingslin6370 [facility] [id number] BY: [address] [id number] TSH 0.267 {uIU/mL} (Abnormal) Range: 0.450-4.500 :32 Methymalonic Acid, Serum Comments: PERFORMED BY: Yoozon [facility] [id number] BY: [address] [id number] (91070) Methylmalonic Acid, Serum 134 nmol/L (Normal) Range: 0-378 2-Swg-715023:32 Vitamin B-12 (cyanocobalamin) Comments: PERFORMED BY: QwilrJefferson [facility])Nypogq9675 [facility] [id number] BY: [address] [id number] (02114) Vitamin B12 1073 pg/mL (Abnormal) Range: 211-946 :32 HGB A1C (48513) Comments: PERFORMED BY: [address] [id number] BY: [address] [id number] Hemoglobin A1c 6.5 % (Abnormal) Range: 4.8-5.6 Comments: . Pre-diabetes: 5.7 - 6.4 Diabetes: >6.4 Glycemic control for adults with diabetes: <7.0 :32 HEPATITIS C ANTIBODY Comments: PERFORMED BY: [address] [id number] BY: [address] [id number] (64788) Hep C Virus Ab <0.1 {s/co_ratio} (Normal) Range: 0.0-0.9 Comments: Negative: < 0.8 Indeterminate: 0.8 - 0.9 Positive: > 0.9 . The CDC recommends that a positive HCV antibody result be followed up with a HCV Nucleic Acid Amplification test (065261). 4-Ehp-206107:10 URINE ELIN CULTURE-IDENTIFICATN Comments: PERFORMED BY: [address] [id number] (32060) Result 1 MUG (Normal) Comments: Mixed urogenital flora10,000-25,000 colony forming units per mL Urine Final report (Normal) Culture,Comprehensive 9-Izn-831294:10 URINALYSIS (69296) Comments: PERFORMED BY: [address] [id number] Information: [id number] SRC:UVC Microscopic Examination See below: (Normal) Comments: Microscopic was indicated and was performed. Nitrite, Urine Negative (Normal) Urobilinogen,Semi-Qn 0.2 mg/dL (Normal) Range: 0.2-1.0 Bilirubin Negative (Normal) Occult Blood Negative (Normal) Ketones Negative (Normal) Glucose Negative (Normal) Protein Negative (Normal) WBC Esterase 1+ (Abnormal) Appearance Clear (Normal) Urine-Color Yellow (Normal) pH 6.0 (Normal) Range: 5.0-7.5 Specific Machias 1.014 (Normal) Range: 1.005-1.030 Plan of Care [...] SEBORRHEIC KERATOSIS Planned Observations HEPATIC FUNCTION PANEL (20097)Indication: Fatty liver On: 13-Ubl-828177:56 Request Vitamin B-12 (cyanocobalamin) (31709)Indication: Vitamin B12 deficiency On: 34-Hcs-351349:56 Request TSH (86442)Indication: Adult hypothyroidism On: 38-Bkm-481374:28 Request LIPID PANEL (80037)Indication: Type II diabetes mellitus On: 85-Ybf-874188:28 Request METABOLIC PANEL, COMPREHENSIVE (88350)Indication: Type II diabetes mellitus On: 71-Zcy-723201:28 Request Metabolic Panel, Comprehensive (66425)Indication: Abnormal blood creatinine level On: 38-Gum-870148:23 Request Comments: re check in 8 weeks TSH (62493)Indication: Adult hypothyroidism On: 59-Net-637676:23 Request Comments: re check in 8 weeks TSH (55987)Indication: Adult hypothyroidism On: :59 Request CREATININE CLEARANCE (25031)Indication: Renal insufficiency On: :49 Request Total Protein,24 Hour Urine (31353)Indication: Renal insufficiency On: :49 Request Metabolic Panel, Basic (92581)Indication: Renal insufficiency On: :49 Request Metabolic Panel, Comprehensive (87512)Indication: Abnormal blood creatinine level On: 97-Qjr-731730:31 Request Comments: re check in 8 weeks URINE ELIN CULTURE-IDENTIFICATN (16867)Indication: Flank pain On: :02 Request URINALYSIS (78681)Indication: Flank pain On: :02 Request TSH (20394)Indication: Adult hypothyroidism On: :48 Request METABOLIC PANEL, COMPREHENSIVE (83544)Indication: Type II diabetes mellitus On: :48 Request CBC W/AUTO DIFF WBC (39541)Indication: Type II diabetes mellitus On: :48 Request Uric Acid Blood (27466)Indication: Elevated uric acid in blood On: :43 Request T4, FREE (THYROXINE) (09644)Indication: History of Graves' disease On: :55 Request Comments: re check in 8 weeks T3, FREE (TRIDOTHYRONINE) (65194)Indication: History of Graves' disease On: :55 Request Comments: re check in 8 weeks TSH (58868)Indication: History of Graves' disease On: :54 Request Comments: re check in 8 weeks URINE ELIN CULTURE-IDENTIFICATN (94400)Indication: Acute cystitis without hematuria On: 06-Sgp-583009:42 Request Planned Procedures Flu Vaccine (Quadrivalent) On: 14-Jun-2018 Intent 52207Ew: Rowan Mott MD Comments: Lot #:[id number] date: 9-30-36Etmefa given:0.5mlRoute: IMSite given:L DltdGiven by: ElaineVIS and ABN signed [employer] Rowan Mott MD CT - Abdomen & Pelvis Stone On: 02-Oct-2017 Intent ProtocolBy: Rowan Mott MD, MD, Dana M Flu Vaccine (Quadrivalent) On: 20-Jun-2017 Intent 18798Wh: Rowan Mott MD Comments: QUAD flu 0.5ml injectionlot number: [id number]: 11/2017R Deltoid IMpt tolerated wellAD ECONOMIC HISTORIAN Rowan Mott MD SCREENING DIGITAL TOMOSYNTHESIS On: 20-Apr-2017 Intent OF BREAST (07761)By: Rowan Mott MD, MD, Dana M DEXA SCAN AXIAL SKELETON On: 20-Apr-2017 Intent (51044)By: Rowan Mott MD, MD, Dana M EMGBy: Rowan Mott MD On: 14-Nov-2016 Intent Rowan COX Nerve ConductionBy: Pantera COX, On: 14-Nov-2016 Intent Rowan Pcikett MD Comments: right foot. Bone Density StudyBy: Pantera COX, On: 14-Nov-2016 Intent Rowan Pickett MD CT - Abdomen & Pelvis Stone On: 19-Sep-2016 Intent ProtocolBy: Rowan Mott MD, MD, Dana M CT - Abdomen (IV Contrast On: 19-Sep-2016 Intent Needed)By: Rowan Mott MD Comments: do at [place] follow up cysts. Rowan Mott MD MAMMOGRAM BREAST BILATERAL On: 19-Sep-2016 Intent SCREENING DIGITAL (05554)By: Rowan Mott MD, MD, Dana M Instructions [...] : Patient Instructions Indication: BMI 32.0-32.9,adult Encounters Office Visit On: 14-Jun-2018 11:28 Encounter Reason: [...] in bathroom. The patient has completed the [facility] preventative measures: PAP smear (over 5 years ago), mammography (due jul 2017) and colonoscopy (about 3 years ago). The patient does not have durable power of senior attorney or living will. The patient has [...]
--- OUTSIDE RECORDS SUMMARY | 2018-11-16 17:56 | XMS RPT_ITS ---
:1950 Author Organization OHIP Care Team Providers Name Role Phone Rowan Trinidad Attending Unavailable Bonejohnathan, Rowan Referring Unavailable Bonegarretti, Rowan Primary Care Unavailable Alex Richardson Attending Unavailable Bonejohnathan, Rowan Referring Unavailable Bonezzi, Rowan Primary Care Unavailable Amos, Rowan Consulting Unavailable Steve Trinidada Attending Unavailable Bonezzi, Rowan Primary Care Unavailable Bonezzi MD, Rowan M Attending Rowan Iraheta MD Referring Unavailable Rowan Trinidad MD Consulting William TRINIDAD MD., DR. VALLES Attending Unavailable AMOS DE LA GARZA, DR. VALLES Primary Care Unavailable AMOS DE LA GARZA, DR. VALLES Attending Unavailable AMOS DE LA GARZA, DR. VALLES Primary Care Unavailable AMOS DE LA GARZA, DR. VALLES Attending Unavailable AMOS DE LA GARZA, DR. VALLES Primary Care Unavailable AMOS DE LA GARZA, DR. VALLES Attending Unavailable AMOS DE LA GARZA, DR. VALLES Primary Care Unavailable AMOS DE LA GARZA, DR. VALLES Attending Unavailable AMOS DE LA GARZA, DR. 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 ROWAN Ibarra group vitamins / Repository E53.8(ICD-10) 08/15/2018 Admitting Fatty (change of) AMOS DE LA GARZA, Active [facility] Diagnosis liver, not DR. ROWAN Ibarra elsewhere Repository classified / K76.0(ICD-10) 03/09/2018 Admitting Abnormal finding AMOS DE LA GARZA, Active [facility] Diagnosis of blood DR. 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 ROWAN Ibarra E03.9(ICD-10) Repository PROCEDURES PROCEDURES No Procedure Records FoundVITAL SIGNS VITAL SIGNS No Vital Signs Records FoundRESULTS RESULTS TXT - BLOOD FLOW Observed: 09/06/2018 Status: F Source: [place] SCREENING 10:59 AM [facility] REPOSITORY [facility] Cardiovascular Services [address] [place] [address] 09/05/18 0833 MR#: [id number] Acct: [id number] Name: LUIS CARLOS MARTINEZ Rep #: [id number] : 1950 68 From: Dick Jimenez MD Attending Dr: Rowan Trinidad MD Status: REG REF Ordering Dr: Date: 09/06/18 Location: CVS Sex: F UTD Admitted: Reason For Study: Blood Flow Screening Carotid Duplex Ultrasound Abdominal Aorta The right maximum ICA velocity is 62/20 cm/s. The maximal outside diameter of the proximal aorta The right ECA velocity is less than 125 cm/s. measures 2.21cm x 2.28 cm in the cross-sectional There is insignificant plaque formation noted on axis. the right side. The maximal outside diameter of the proximal aorta The left maximum ICA velocity is 93/18 cm/s. measures 2.01 cm in the longitudinal axis. The left ECA velocity is less than 125 cm/s. There is insignificant plaque formation noted on the left side. Ankle Brachial Index The right ankle/ brachial index is 1.10. The left ankle/ brachial index is 1.11. Medical History and Assessment Medical History: Diabetic, HTN. The heart rate is 72 beats per minute. The heart rhythm is regular. The right blood pressure is 144/82. The left blood pressure is 146/80. Interpretation Summary Normal carotid artery screening (0 to 15% narrowing). Normal aortic ultrasound exam. The ankle/brachial index is normal (1.0 or greater). Ordering Physician: Rowan Trinidad Referring Physician: Rowan Trinidad Performed By: Heather Clark, RDCS, RVT 09/06/18 1058 Date Dick Jimenez MD CC: Rowan Trinidad MD Date Dictated: 09/05/18 0833 Date Transcribed: 09/06/18 1058 Inspector Repairer: Signed LIMITED CHEST CT Observed: 08/18/2018 Status: F Source: [place] W/CCTA 7:32 AM [facility] REPOSITORY [facility] [place] [address] w/CCTA MR#: [id number] Acct: [id number] Name: LUIS CARLOS MARTINEZ Rep #: [id number] : 1950 F 68 From: Jordan Samano MD PCP: Rowan Trinidad MD Status: REG CLI Study: Limited Chest CT w/CCTA Date of Exam: 08/15/18 Exam# [id number] Ordering Dr: Rowan Trinidad MD STUDY: CT CHEST WITHOUT CONTRAST REASON FOR EXAM: Female, 68 years old. Element cholesterol, coronary calcium scoring, over read. RADIATION DOSAGE (If Supplied By Facility): CTDIvol = ( 12.19 ) mGy, DLP = ( 195.04 ) mGycm TECHNIQUE: Transaxial imaging was performed without the administration of intravenous contrast material. Individualized dose optimization techniques were used for this CT. COMPARISON: None. FINDINGS: Upper abdomen, body wall soft tissues, osseous structures exhibit no acute process. Chronic calcified lymph nodes of the mediastinum and fernanda are consistent with old granulomatous disease and concordant with small calcifications seen in the liver and spleen. A few calcified pulmonary nodules are present also consistent with old granulomatous disease. There are no suspicious pulmonary nodules. Normal airways. The heart is normal in size without pericardial effusion. Nondilated aorta. Nondilated central pulmonary arteries. The right and left coronary arteries each emerge from the appropriate coronary sinus with right coronary dominance to the PDA. RCA, no visible calcified plaque proximally, small focus in the middle segment. None distally. Left main, no plaque. Circumflex, no plaque. Marginal arteries no plaque. LAD, proximal to mid, multifocal calcified plaque. CT/Limited Chest CT w/CCTA IMPRESSION: No acute cardiopulmonary process. Normal coronary artery origins and branching anatomy. Small focus of calcified plaque mid RCA. Next line moderate plaque proximal to mid LAD. Coronary calcium Agatston score and recommendations are provided under separate cover with cardiology. Electronically Signed: Jordan Samano MD at 19:06 EST Tel , Service support , CC: Rowan Trinidad MD Inspector Repairer: Signed B12 Collected: 08/15/2018 Status: F Source: [facility] 9:02 AM [facility] REPOSITORY TYPE CODE TESTS RESULT OUT OF REFERENCE UNITS RANGE LAB B12(LOINC) 211-911 pg/mL High Vitamin B12 1097 Lvl Performed By: #### B12, HFP #### [address] [address] HFP Collected: 08/15/2018 Status: F Source: [facility] 9:02 AM [facility] REPOSITORY TYPE CODE TESTS RESULT OUT OF REFERENCE UNITS RANGE LAB PROT(LOINC) 6.0-8.5 G/dL Total Protein 6.7 LAB ALB(LOINC) 3.2-4.8 G/dL Albumin Level 3.9 LAB GLB(LOINC) 1.5-3.8 G/dL Globulin 2.8 LAB AG(LOINC) 0.9-1.6 ratio A/G Ratio 1.4 LAB BILT(LOINC) 0.2-1.2 mg/dL Bili Total 0.4 LAB BILAD(LOINC 0.0-0.4 mg/dL ) Bili Direct 0.1 LAB BILI(LOINC) 0.1-10.0 mg/dL Bili Indirect 0.3 LAB AP(LOINC) 38-126 U/L Alk Phos 57 LAB AST(LOINC) 8-34 U/L AST/SGOT 24 LAB ALT(LOINC) 10-49 U/L ALT/SGPT 37 Performed By: #### B12, HFP #### [address] [address] TSH Collected: 03/09/2018 Status: F Source: [facility] 10:35 AM [facility] REPOSITORY TYPE CODE TESTS RESULT OUT OF RANGE REFERENCE UNITS LAB TSH(LOINC) 0.360-3.740 mcIU/mL High TSH 5.440 Result Comment: Please note ? as of 03/11/17 new pediatric reference intervals were added for this test. Performed By: #### TSH, CMP, GFR #### [address] [address] CMP Collected: 03/09/2018 Status: F Source: [facility] 10:35 AM [facility] REPOSITORY TYPE CODE TESTS RESULT OUT OF REFERENCE UNITS RANGE LAB GLU(LOINC) 82-115 mg/dL Glucose High Level 118 LAB NA(LOINC) 136-145 mEq/L Sodium Level 145 LAB K(LOINC) 3.5-5.0 mEq/L Potassium Level 4.2 LAB CL(LOINC) 98-110 mEq/L Chloride 105 LAB CO2(LOINC) 22-32 mEq/L CO2 30 LAB EBAL(LOINC 4.0-15.0 mEq/L ) Electrolyte Balance 10.0 LAB BUN(LOINC) 8.0-22.0 mg/dL BUN 19.0 LAB CRE(LOINC) 0.50-1.20 mg/dL Creatinine High Lvl (s) 1.29 LAB BC(LOINC) 10.0-22.0 ratio BUN/Creatinine 14.7 Ratio LAB CA(LOINC) 8.4-10.1 mg/dL Calcium Lvl High 10.4 LAB PROT(LOINC 6.0-8.5 G/dL ) Total Protein 6.6 LAB ALB(LOINC) 3.2-4.8 G/dL Albumin Level 3.8 LAB GLB(LOINC) 1.5-3.8 G/dL Globulin 2.8 LAB AG(LOINC) 0.9-1.6 ratio A/G Ratio 1.4 LAB BILT(LOINC 0.2-1.2 mg/dL ) Bili Total 0.4 LAB AP(LOINC) 38-126 U/L Alk Phos 55 LAB AST(LOINC) 8-34 U/L AST/SGOT 28 LAB ALT(LOINC) 10-49 U/L ALT/SGPT 37 Performed By: #### TSH, CMP, GFR #### [address] [address] .GFR Collected: 03/09/2018 Status: F Source: [facility] 10:35 [facility] REPOSITORY TYPE CODE TESTS RESULT OUT OF REFERENCE UNITS RANGE LAB GFRAA(LOINC ml/min/1.73 ) sqm GFR 50 [place] Result Comment: GFR Population mean for , Non- Americans Ages 20-29 = 116 mL/min/1.73 sq.m. Ages 30-39 = 107 mL/min/1.73 sq.m. Ages 40-49 = 99 mL/min/1.73 sq.m. Ages 50-59 = 93 mL/min/1.73 sq.m. Ages 60-69 = 85 mL/min/1.73 sq.m. Ages 70+ = 75 mL/min/1.73 sq.m. Chronic Kidney Disease: Less than 60 mL/min/1.73 square meters End Stage Renal Disease: Less than 15 mL/min/1.73 square meters LAB GFRNO(LOINC) ml/min/1.73sqm GFR Non- 41 Result Comment: GFR Population mean for , Non- Americans Ages 20-29 = 116 mL/min/1.73 sq.m. Ages 30-39 = 107 mL/min/1.73 sq.m. Ages 40-49 = 99 mL/min/1.73 sq.m. Ages 50-59 = 93 mL/min/1.73 sq.m. Ages 60-69 = 85 mL/min/1.73 sq.m. Ages 70+ = 75 mL/min/1.73 sq.m. Chronic Kidney Disease: Less than 60 mL/min/1.73 square meters End Stage Renal Disease: Less than 15 mL/min/1.73 square meters Performed By: #### TSH, CMP, GFR #### [place] [address] CT ABDOMEN/PELVIS W/O Observed: 12/22/2017 Status: F Source: [place] CONTRAST 9:30 AM [facility] REPOSITORY ORIGINAL CT ABDOMEN/PELVIS W/O CONTRAST CLINICAL STATEMENT: FLANK PAIN COMPARISON: 09/21/2016 FINDINGS:Today's examination was performed as a noncontrast enhanced CT flank study to evaluate for renal calculus disease. The liver and spleen visualized on today's exam are stable. The lung bases are not included. Pancreas is grossly unremarkable within the imaged areas. The adrenal glands demonstrate no contributory findings. No evidence of intrarenal collecting system dilatation or opaque calculus is currently identified on today's exam. There is partial demonstration of parapelvic cystic changes noted on a CT urogram from 06/17/2016 with normal appearance to the ureter. Cortical cystic changes are suspected with incomplete evaluation due to the absence of IV contrast. No upper abdominal adenopathy is noted. Calcification is present along the aorta. Chronic changes to the stomach with postoperative change consistent with postcholecystectomy is noted. There are some sc attered high density material present throughout the bowel which should be correlated with clinical ingestion history. No free fluid or adenopathy is noted in the pelvis. Patient is post partial hysterectomy. Adnexal structures are stable in appearance. Degenerative changes are present throughout the osseous structures are grossly stable appearance IMPRESSION:No evidence of obstructive uropathy. This exam was performed according to our departmental dose optimization program, and includes the following measures where applicable: automated exposure control, adjustment of the mAs and/or kVp accord ing to patient size and/or exam, and an iterative reconstruction algorithm. Interpreted By: Myra Marshall MD Preliminary Report By: Myra Marshall MD Electronically Signed By: Myra Marshall MD Dictated Date: 12/22/2017 10:53:32 AM Prelim Date: 12/22/2017 10:53:32 AM Sign Date: 12/22/2017 11:18:27 AM BMP Collected: 12/18/2017 Status: F Source: [facility] 11:51 AM [facility] REPOSITORY TYPE CODE TESTS RESULT OUT OF REFERENCE UNITS RANGE LAB GLU(LOINC) 82-115 mg/dL Glucose High Level 127 LAB NA(LOINC) 136-145 mEq/L Sodium Level 143 LAB K(LOINC) 3.5-5.0 mEq/L Potassium Level 3.9 LAB CL(LOINC) 98-110 mEq/L Chloride 107 LAB CO2(LOINC) 22-32 mEq/L CO2 28 LAB EBAL(LOINC 4.0-15.0 mEq/L ) Electrolyte Balance 8.0 LAB BUN(LOINC) 8.0-22.0 mg/dL BUN 19.0 LAB CRE(LOINC) 0.50-1.20 mg/dL Creatinine Lvl (s) 1.20 LAB BC(LOINC) 10.0-22.0 ratio BUN/Creatinine 15.8 Ratio LAB CA(LOINC) 8.4-10.1 mg/dL Calcium Lvl 9.5 Performed By: #### BMP, TSH, GFR #### [address] [address] TSH Collected: 12/18/2017 Status: F Source: [facility] 11:51 AM [facility] REPOSITORY TYPE CODE TESTS RESULT OUT OF RANGE REFERENCE UNITS LAB TSH(LOINC) 0.360-3.740 mcIU/mL High TSH 4.780 Result Comment: Please note ? as of 03/11/17 new pediatric reference intervals were added for this test. Performed By: #### BMP, TSH, GFR #### [address] [address] .GFR Collected: 12/18/2017 Status: F Source: [facility] 11:51 AM [facility] REPOSITORY TYPE CODE TESTS RESULT OUT OF REFERENCE UNITS RANGE LAB GFRAA(LOINC ml/min/1.73 ) sqm GFR 54 [place] Result Comment: GFR Population mean for , Non- Americans Ages 20-29 = 116 mL/min/1.73 sq.m. Ages 30-39 = 107 mL/min/1.73 sq.m. Ages 40-49 = 99 mL/min/1.73 sq.m. Ages 50-59 = 93 mL/min/1.73 sq.m. Ages 60-69 = 85 mL/min/1.73 sq.m. Ages 70+ = 75 mL/min/1.73 sq.m. Chronic Kidney Disease: Less than 60 mL/min/1.73 square meters End Stage Renal Disease: Less than 15 mL/min/1.73 square meters LAB GFRNO(LOINC) ml/min/1.73sqm GFR Non- 45 Result Comment: GFR Population mean for , Non- Americans Ages 20-29 = 116 mL/min/1.73 sq.m. Ages 30-39 = 107 mL/min/1.73 sq.m. Ages 40-49 = 99 mL/min/1.73 sq.m. Ages 50-59 = 93 mL/min/1.73 sq.m. Ages 60-69 = 85 mL/min/1.73 sq.m. Ages 70+ = 75 mL/min/1.73 sq.m. Chronic Kidney Disease: Less than 60 mL/min/1.73 square meters End Stage Renal Disease: Less than 15 mL/min/1.73 square meters Performed By: #### BMP, TSH, GFR #### [place] [address] PRU24 Collected: 12/18/2017 Status: F Source: [facility] 11:51 AM [facility] REPOSITORY TYPE CODE TESTS RESULT OUT OF REFERENCE UNITS RANGE LAB PRUR(LOINC) mg/dL Ur Protein <5.0 LAB PR24(LOINC) 0-200 mg/24hr U24 Protein see comment Result Comment: Unable to calculate this test result accurately. Results used to calculate this test are outside the reportable range. Performed By: #### PRU24, TVOLCRE, CRCL #### [place] [address] .TV CREATININE Collected: 12/18/2017 Status: F Source: [facility] 11:51 AM [facility] REPOSITORY TYPE CODE TESTS RESULT OUT OF REFERENCE UNITS RANGE LAB FITO(LOINC hour ) Collection 24 Period LAB VOL24(LOIN mL/24hr C) U24 Total Volume 1142 LAB CRU(LOINC) mg/dL Ur Creat 85.0 LAB CR24(LOINC 0.6-1.6 g/24hr ) U24 Creatinine 1.0 Performed By: #### PRU24, TVOLCRE, CRCL #### [place] [address] CRCL UR Collected: 12/18/2017 Status: F Source: [facility] 11:51 AM [facility] REPOSITORY TYPE CODE TESTS RESULT OUT OF REFERENCE UNITS RANGE LAB HT(LOINC) cm Height Lab 165.10 LAB WT(LOINC) kg Weight Lab 90.700 LAB CRE4CL(YINKA 0.50-1.20 mg/dL NC) Creat for Cr Clr Calc 1.20 LAB BSA(LOINC) BSA Lab 2.04 LAB CCL(LOINC) 88-128 ml/min/1.73 Low sqm Cr Clearance 48 Performed By: #### PRU24, TVOLCRE, CRCL #### [place] [address] MA MAMMOGRAM SCREENING Observed: 09/29/2017 Status: F Source: [facility] BILATERAL W/SURI 3:15 PM [facility] REPOSITORY ORIGINAL FROM: [facility] [address] [place] [address] PROCEDURE FOR: LUIS CARLOS MARTINEZ [address] [place] [address] Home: PID#: [id number] Exam#: [id number] : 1950 Age: 67 TO: ROWAN TRINIDAD MD [address] [place] [address] #[id number] DIGITAL SCREENING MAMMOGRAM 3D/2D WITH CAD: 09/29/2017 Comparison is made to exam dated: 09/22/2016 mammogram - [facility]. There are scattered fibroglandular elements in both breasts. Current study was also evaluated with a Computer Aided Detection (CAD) system. There are benign calcifications in both breasts. No significant masses, calcifications, or other findings are seen in either breast. There has been no significant interval change. IMPRESSION: BENIGN There is no mammographic evidence of malignancy. A 1 year screening mammogram is recommended. STEVEN KRAUSE MD critical access hospital/rosalino:10/02/2017 16:00:51 [employer] Hand: AHSAN DEVRIES(nAup)([place]), [facility] letter sent: Normal BI-RADS 1&2 Mammogram BI-RADS: 2 Benign BD BONE DENSITY DEXA Observed: 09/29/2017 Status: F Source: [facility] AXIAL SKELETON 2:00 PM [facility] REPOSITORY ORIGINAL BONE DENSITOMETRY CLINICAL STATEMENT: POST MENOPAUSAL, SCREENING. COMPARISON: 08/25/2015 T-Score Left Femoral Neck: 2.4 BMD (g/cm2) Left Femoral Neck: 1.117 T-Score Left Hip: 2.4 BMD (g/cm2) Left Hip: 1.233 T-Score Lumbar Spine L1-L4: 5.2 BMD (g/cm2) Lumbar Spine L1-L4: 1.623 IMPRESSION: No osteopenia or osteoporosis, but diminished bone density since 2014. BMD Change from previous Hip: -3.7 Percent BMD Change from previous Lumbar Spine:-8.5 Percent *By the World Health Organization standards: Osteopenia is present when the bone mineral density is greater than 1 standard deviation (SD) but less than 2.5 SDs below a young normal sex matched populati on. Osteoporosis is present when the bone mineral density is equal to or greater than 2.5 SDs below a young normal sex matched population. Interpreted By: Pantera Ramírez DO Preliminary Report By: Pantera Ramírez DO Electronically Signed By: Pantera Ramírez DO Dictated Date: 09/29/2017 3:48:54 PM Prelim Date: 09/29/2017 3:48:54 PM Sign Date: 09/29/2017 4:51:41 PM ALLERGIES ALLERGIES DATE TYPE / CODE NAME / CODE REACTION SEVERITY SOURCE 08/15/2018 Drug Sulfa Rash Unknown [facility] Allergy/4160 (Sulfonamide [facility](SNOMED Antibiotics)/ Repository CT) [id number](RX NORM) 08/15/2018 Drug codeine/F0060 Upset Stomach Unknown [facility] Allergy/4160 56976(RXNORM) Hospital 04893(SNOMED Repository CT) 08/15/2018 Drug naproxen/F006 Upset Stomach Unknown [facility] Allergy/4160 001973(RXNORM [facility](SNOMED ) Repository CT) ENCOUNTERS ENCOUNTERS ADMIT/DISCHARGE ACCOUNT NUMBER ADMITTING ENCOUNTER LOCATION SOURCE CLASS 09/20/2018 [id number] Ambulatory Building:[facility] OHIP Practices Repository 09/05/2018 [id number] Ambulatory [facility] ding:[facility] Repository 08/16/2018 [id number] Ambulatory BMSBuilding: [place] BMS.CF.[facility] Repository 08/15/2018 [id number] Ambulatory [facility] ding:CT Repository 08/15/2018/08/19/20 [id number] Ambulatory ABuilding:DN [address] Repository 03/09/2018/03/13/20 [id number] Ambulatory [address] CABuilding:N [facility] Repository 12/22/2017/12/23/19 [id number] Ambulatory TANVI Tanvi 18 [facility] g:NX[facility] Repository 12/18/2017/12/23/19 [id number] Ambulatory TANVI Tanvi 18 [facility] CABuilding:N Foundation [facility] [place]ository 09/29/2017/09/29/19 [id number] Ambulatory TANVI Tanvi 18 [facility] g:NXRY [facility] Repository FUNCTIONAL STATUS FUNCTIONAL STATUS No Functional Status Records FoundEQUIPMENT EQUIPMENT No Equipment Records FoundPAYERS PAYERS ENCOUNTER GUARANTOR PAYER SUBSCRIBER SOURCE 09/20/2018 LUIS CARLOS [place] Primary LUIS CARLOS [place] Practices CHAPMANDOB: Insurance:MedicarePol CHAPMANDOB: Repository [id number] icy Number: [id number] [facility] [id number] Date:4435-79-64Fxfc [place], [place] [address]Esm: (065) Name:[facility] [address] [address]Llj: () [id number], [place] [phone] () [address]BQ: 09/20/2018 Secondary LUIS CARLOS Hector OHIP Practices Insurance:[facility] HealthMANDOB: Repository [facility] [id number] Number: 3 [facility] [id number] [place] Date:2296-62-93Pfln [id number]: Name:O [address] ~(7 [address]Lkbkh [place], [place] () [id number]: 09/05/2018 LUIS CARLOS Hector Primary NOT GIVENUNK [place] [id number] Insurance:SELF PAY [place], [place] Number: Effective Repository [address]Pde: (330) Date:2018-08-30 [phone] (HP) 08/16/2018 LUIS CARLOS H[place] Primary Insurance:[facility] LUIS CARLOS [place] [id number] PACKAGE PLANChildren[facility] Hospital of PhiladelphiaMANDOB: [facility] Number: [id number] [id number] Repository [address]Zio: (330) Date:2018-06-14 [phone] () 08/16/2018 Secondary NOT GIVENUNK [place] Insurance:SELF PAY [facility] Number: Effective Repository Date:2018-08-16 08/15/2018 LUIS CARLOS Hector Primary Insurance:[facility] LUIS CARLOS [place] [id number] PACKAGE PLANPolicy CHAPMANDOB: [facility] Number: [id number], [place] [id number] Repository [address]Lju: (330) Date:2018-06-14 [phone] () 08/15/2018 Secondary NOT GIVENUNK [place] Insurance:SELF PAY [facility] Number: Effective Repository Date:2018-06-14 08/15/2018 LUIS CARLOS H[place] Primary LUIS CARLOS Hector [facility] CHAPMANDOB: Insurance:MEDICARE CHAPMANDOB: [facility] PART B INSCOPolicy [id number] [facility] Number: [address] [place], [place] [id number] [place] [email or web address] Date:2018-08-15Tel: [phone] mail.comTel: [phone] Name:ANYA ()Tel: (000) (HP) Administrators LLCPO 000-0000 (WP) [address] [place] [address]UC: 08/15/2018 Secondary LUIS CARLOS [facility] Insurance:[facility] CHAPMANDOB: Foundation INSURANCE SECONDARY [id number] Repository INSCOPolicy Number: 3 [facility] [id number] [place] Date:2018-08-15Tel: [phone] [phone] Name:FINISH PATCHER Box ()Tel: 000 [address]CdvlsLeslie, [place] 000-0000 (WP) [address]TR: 03/09/2018 LUIS CARLOS [place] Primary LUIS CARLOS [facility] CHAPMANDOB: Insurance:MEDICARE CHAPMANDOB: [facility] PART BPolicy Number: [id number] [facility] [id number] [address] [place], [place] Date:2018-03-09 [place], [place] [address]Nrp: [phone] [phone]: (HP) Name:[place] [id number] Administrators LLCPO (HP)Tel: (000) [address] [address]Chssccuue, 000-0000 (WP) [place] [address]CH: 12/22/2017 LUIS CARLOS M Primary LUIS CARLOS [facility]ector [facility]: Insurance:MEDICARE CHAPMANDOB: Foundation PART BPolicy Number: [id number] [facility] [id number] [address] [place], [place] Date:2017-12-13 - [place], [place] [address]Osx: [phone] [phone]: (HP) Name:[place] [address] Administrators LLCPO (HP)Tel: (000) [address] [address]Uqgbjlmkw, 000-0000 (WP) [place] [address]DS: 12/22/2017 Secondary LUIS CARLOS M [facility] Insurance:[facility] CHAPMANDOB: Foundation INSURANCE [id number] Repository PRIMARYPolicy Number: 3 [facility] [id number] [place], [place] Date:2017-12-13 [address]Gku: [phone] Name:AGNES Rucker BOX (HP)Tel: (000) [phone] [place], [place] 000-0000 (WP) [address]IC: 12/18/2017 LUIS CARLOS Hector Primary LUIS CARLOS Hector [facility]: Insurance:MEDICARE CHAPMANDOB: Foundation PART BPolicy Number: [id number] [address] [facility] [id number] [address] [place], [place] Date:2017-12-18 [place], [place] [address]Ebi: [phone] [phone]: (HP) Name:[facility] [phone] Administrators LLCPO (HP)Tel: (000) [address] [address]Xzlbztvdg, 000-0000 (WP) [place] [address]FW: 12/18/2017 Secondary LUIS CARLOS Tawny [facility] Insurance:[facility] [facility] CHAPMANDOB: [facility] INSURANCE [id number] Repository PRIMARYPolicy Number: 3 [facility] [id number], [place] Date:2017-12-1856104Jpb: [id number] [phone] Name:CP O BOX ()Tel: [phone], [place] 000-0000 (WP) [phone]: 09/29/2017 [facility] CHAPMANDOB: Insurance:MEDICARE CHAPMANDOB: [facility] PART BPolicy Number: [id number] [facility] [id number] 3 [place], [place] Date:2017-09-20 [place], [place] [address]Oio: [phone] [id number]: () Name:[facility] [phone] Administrators LLCPO (HP)Tel: [phone]) [address] [phone], 000-0000 (WP) [place] [address]XA: 09/29/2017 Secondary [facility] [place] [facility] Insurance:[facility]APMANDOB: [facility] INSURANCE [id number] Repository PRIMARYPolicy Number: 3 [facility] [id number], [place] Date:2017-09-20 [id number]: [phone] [phone] Name:CP O BOX (HP)Tel: [phone], [place] [phone] (WP) [phone]: SOCIAL HISTORY SOCIAL HISTORY No Social History Records FoundFAMILY HISTORY FAMILY HISTORY No Family History Records FoundADVANCE DIRECTIVES ADVANCE DIRECTIVES No Advanced Directives Records FoundINFORMATION SOURCE INFORMATION SOURCE DATE CREATED AUTHOR AUTHOR'S ORGANIZATION 09/22/2018 T[place]OR[facility]
== END ==
PROVIDERS: Family Provider Internal Medicine; PCP Internal Medicine; Referring Provider Internal Medicine; Visit Provider Internal Medicine
DX: E78.00 Pure hypercholesterolemia, unspecified (principal)
CPT/HCPCS: 75571; 76380

== ENCOUNTER → 2019-06-18 15:12 | Outpatient (CLI) | payer MEDICARE, OTHER, SELFPAY ==
[2018-08-15 13:03] VITALS: BMI 31.8
[2019-06-18 16:25] LABS: Anion Gap 8 (5-15); BUN 17 mg/dL (7-18); BUN/Creat Ratio 14.4 RATIO (10-20); Calcium,Total 8.4 mg/dL (8.5-10.1); Chloride 106 mmol/L (98-107); Creatinine, Serum 1.18 mg/dL (0.55-1.02); EST Glomerular Filtration Rate 48 mL/min (>60); Est Glom Filt Rate - Afr Amer 58 mL/min (>60); Magnesium 1.6 mg/dL (1.6-2.6); Potassium 3.8 mmol/L (3.5-5.1); Sodium Level 143 mmol/L (136-145)
[2019-06-18 18:51] LABS: Glucose 179 mg/dL (74-106)
== END ==
PROVIDERS: Family Provider Internal Medicine; PCP Internal Medicine; Referring Provider Internal Medicine; Visit Provider Internal Medicine
DX: R42 Dizziness and giddiness (principal)
CPT/HCPCS: 80048; 83735

== ENCOUNTER → 2019-06-27 12:22 | Outpatient (CLI) | payer MEDICARE, OTHER, SELFPAY ==
[2018-08-15 13:03] VITALS: BMI 31.8
== END ==
PROVIDERS: Family Provider Internal Medicine; PCP Internal Medicine; Referring Provider Internal Medicine; Visit Provider Internal Medicine
DX: R42 Dizziness and giddiness (principal)

== ENCOUNTER → 2020-04-02 18:25 | Outpatient (CLI) | payer MEDICARE, OTHER, SELFPAY ==
[2018-08-15 13:03] VITALS: BMI 31.8
== END ==
PROVIDERS: PCP Internal Medicine; Visit Provider Dermatology
DX: L60.9 Nail disorder, unspecified (principal); L92.3 Foreign body granuloma of the skin and subcutaneous tissue; L40.8 Other psoriasis; L72.8 Other follicular cysts of the skin and subcutaneous tissue
CPT/HCPCS: 87070; 87077; 87101; 87186; 87205

== ENCOUNTER → 2022-09-02 | Outpatient (CLI) | payer MEDICARE, OTHER, SELFPAY ==
--- NOTE | 2022-09-02 13:56 | VDLE_ITS ---
Reason For Study: Pain RIGHT LEFT GSV is normal. CFV is compressible, spontaneous, phasic, CFV is compressible, spontaneous, phasic, competent, and demonstrates normal competent and demonstrates normal augmentation. augmentation. FV is compressible, spontaneous, phasic, competent and demonstrates normal augmentation. POP V is compressible, spontaneous, phasic, competent and demonstrates normal augmentation. T/P Trunk is compressible. PTV is compressible. RT PerV is compressible. Procedure This is a venous duplex using B-mode, color flow and spectral Doppler. Exam performed in department. A preliminary report was called and/or faxed to [facility]. VL/Venous Duplex US, Unilateral Interpretation Summary Deep veins of the right lower extremity are patent and compressible segmentally . There is no evidence of right lower extremity deep vein thrombosis. Valvular competence shanna ears intact within the proximal deep venous system on the right . The right great saphenous vein a ppears patent and compressible segmentally. Ordering Physician: Rowan Mott Referring Physician: Rowan Mott M.D. Performed By: Joselin Ellington RVT
[2022-09-02 16:24] LABS: T4 Free Direct 0.94 ng/dL (0.76-1.46); Thyroid Stim Hormone (TSH) 0.77 uIU/mL (0.358-3.74)
[2022-09-02 16:51] LABS: Vitamin B12 > 2000 pg/mL (211-911)
[2022-09-02 18:23] LABS: ALB/GLOB Ratio 1.1 RATIO (0.9-2.4); AST(SGOT) 24 U/L (15-37); Alanine Aminotransfer ALT/SGPT 30 U/L (13-56); Albumin, Serum 4.1 g/dL (3.2-5.0); Alkaline Phosphatase 47 U/L (45-117); Anion Gap 7 (5-15); BUN 26 mg/dL (7-18); BUN/Creat Ratio 22.2 RATIO (10-20); Calcium,Total 10.8 mg/dL (8.5-10.1); Chloride 103 mmol/L (98-107); Creatinine, Serum 1.17 mg/dL (0.55-1.02); EST Glomerular Filtration Rate 48 mL/min (>60); Est Glom Filt Rate - Afr Amer 58 mL/min (>60); Globulin 3.6 g/dL (2.2-4.2); Glucose 125 mg/dL (74-106); Potassium 3.9 mmol/L (3.5-5.1); Protein, Total 7.7 g/dL (6.4-8.2); Sodium Level 139 mmol/L (136-145)
== END | disposition home or self-care (01) ==
PROVIDERS: PCP Internal Medicine; Visit Provider Internal Medicine
DX: M79.661 Pain in right lower leg (principal); E03.9 Hypothyroidism, unspecified; E53.8 Deficiency of other specified B group vitamins
CPT/HCPCS: 36415; 80053; 82607; 84439; 84443; 93971

== ENCOUNTER → 2023-08-15 | Outpatient (CLI) | payer MEDICARE, OTHER, SELFPAY ==
--- NOTE | 2023-08-15 13:13 | BI_ITS ---
MAMMOGRAPHY - BILATERAL SCREENING REASON FOR EXAM: Female, 73 years old. Routine annual screening examination. PERTINENT HISTORY: Sisters with breast cancer. TECHNIQUE: Digital bilateral breast suri (3D mammographic acquisition) in the CC and MLO projections. 2-D mediolateral oblique (MLO) and craniocaudad (CC) views of both breasts were obtained. CAD: Full Field Digital Mammography with Computer Added Detection was performed. COMPARISON: Comparison is made with prior examination dated April 26, 2021. FINDINGS: Breast Composition: There are scattered areas of fibroglandular density. There are no dominant masses or suspicious calcifications. No other significant abnormalities are identified. There has been no significant change since the prior study. BI/SCRN MAMM (CAD)W/SURI BILAT IMPRESSION: Stable bilateral screening mammogram. Yearly follow-up mammogram recommended. (A) ASSESSMENT CATEGORY: BIRADS Category 1: Negative. A letter regarding these results will be sent to the patient by the facility within 30 days. Approximately 10% of breast cancers are not detected by mammography. A normal mammogram should not delay biopsy of a clinically suspicious abnormality. [id number] Electronically Signed: Henry Marquez MD at 14:29 EST ,
--- NOTE | 2023-08-15 13:17 | BD_ITS ---
STUDY: DUAL ENERGY X-RAY ABSORPTIOMETRY / DXA REASON FOR EXAM: Female, 73 years old. 627.8Menopausal postmenopausal BONE DENSITY REASON FOR EXAM TECHNIQUE: Bone Mineral Density (BMD) measurements of lumbar spine and bilateral hips were obtained. COMPARISON: None. FINDINGS: Lumbar Spine (L1-L4): g/cm2 (1.681) / T-score (5.8) / Z-score (8.1) Findings are suggestive of normal bone density with a low fracture risk. Left Femur Total: g/cm2 (1.250) / T-score (2.5) / Z-score (4.2) Left Femoral Neck: g/cm2 (1.225) / T-score (3.4) / Z-score (5.4) Right Femur Total: g/cm2 (1.318) / T-score (3.1) / Z-score (4.8) Right Femoral Neck: g/cm2 (1.304) / T-score (4.1) / Z-score (6.1) BD/Dexa Bone Density Study IMPRESSION: The patient is considered normal as outlined below according to World Mane Organization (WHO) criteria with a low fracture risk. Reference Information: The T-score is the number of standard deviations above or below the standard which is normal for young adults at their peak bone mineral density. The World Health Organization (WHO) interprets the T-scores as follows: Above -1 Normal bone density Between -1 and -2.5 Osteopenia Equal to / or below -2.5 Osteoporosis As a practical clinical guideline, osteopenia may be graded as follows: Mild -1 through -1.5 Moderate -1.6 through -2.0 Severe -2.1 through -2.4 The Z-score is the number of standard deviations above or below age-matched controls. A Z-score of less than -1.5 would be considered abnormal. References: 1. NIH Osteoporosis and Related Bone Diseases www osteo.org 2. International Society for Clinical Densitometry www iscd.org 3. National Osteoporosis Foundation www nof.org Electronically Signed: Henry Marquez MD at 13:00 EST ,
== END | disposition home or self-care (01) ==
LOC: OPBD 13:12
PROVIDERS: PCP Internal Medicine; Referring Provider Internal Medicine; Visit Provider Internal Medicine
DX: Z12.31 Encounter for screening mammogram for malignant neoplasm of breast (principal); Z78.0 Asymptomatic menopausal state; Z80.3 Family history of malignant neoplasm of breast
CPT/HCPCS: 77063; 77067; 77080

== ENCOUNTER → 2024-11-07 | Outpatient (CLI) | payer MEDICARE, OTHER, SELFPAY ==
--- NOTE | 2024-11-07 15:00 | BI_ITS ---
PROCEDURE: SCRN MAMM (CAD)W/SURI BILAT REASON FOR EXAM: F, Age 74 y/o , SCREENING. No family history. TECHNIQUE: Bilateral screening digital breast tomosynthesis with 2D and 3D images. Computer aided detection. COMPARISON: Prior exam(s) dating back to August 15, 2023.. FINDINGS: There are scattered areas of fibroglandular density. Stable examination. No suspicious masses, areas of developing architectural distortion, or suspicious calcifications. BI/SCRN MAMM (CAD)W/SURI BILAT IMPRESSION: BI-RADS 1: NEGATIVE. RECOMMEND ANNUAL MAMMOGRAPHIC SCREENING. Follow-up code: Routine Follow-up The patient will be notified of the results by letter. Reading Location: [id number]
== END | disposition home or self-care (01) ==
LOC: OPBI 15:02
PROVIDERS: PCP Internal Medicine; Referring Provider Internal Medicine; Visit Provider Internal Medicine
DX: Z12.31 Encounter for screening mammogram for malignant neoplasm of breast (principal)
CPT/HCPCS: 77063; 77067

== ENCOUNTER → 2024-12-24 | Outpatient (CLI) | payer MEDICARE, OTHER, SELFPAY ==
--- NOTE | 2024-12-24 12:36 | ECHOD_ITS ---
Reason For Study Reason For Study: MURMUR Procedure This was a 2D Doppler, Color Flow transthoracic echocardiogram. Exam performed in department. Left Ventricle Normal LV size. The estimated ejection fraction is 55 %. No evidence for diastolic dysfunction. No regional wall motion abnormalities noted. Right Ventricle Normal RV size. Normal systolic function. Atria The left and right atria are normal. No doppler evidence for ASD. Bubble contrast study negative for right to left interatrial shunt. Mitral Valve There is mild mitral annular calcification. There is no mitral valve stenosis. Mild (1+) mitral valve insufficiency. Tricuspid Valve There is no tricuspid stenosis. Unable to estimate RV systolic pressure due to insufficient tricuspid regurgitant envelope. Trivial tricuspid valve insufficiency. Aortic Valve Trisinus/trileaflet aortic valve. Aortic sclerosis, no stenosis. There is no aortic stenosis. Mild (1+) aortic valve insufficiency. Pulmonic Valve There is no pulmonic valvular stenosis. Trivial pulmonic valve insufficiency. Great Vessels Normal sized aortic root. Pericardium/Pleural No pericardial effusion. Medication 22 gauge I.V. with prn adaptor inserted into right arm. Performed a rapid injection of agitated mix of 9 cc saline and 1cc air to assess for atrial septal defect. MMode/2D Measurements & Calculations LVIDd: 4.4 cm IVSd: 1.0 cm Ao root diam: 3.2 cm LVIDs: 2.9 cm LVPWd: 1.0 cm RVDd: 3.0 cm FS: 33.3 % LAV(MOD-bp): 42.0 ml LVAd ap4: 26.5 cm2 SV(MOD-sp4): 47.7 ml LAV(MOD-bp) Indexed: 21.4 ml/m2 LVLd ap4: 7.5 cm SI(MOD-sp4): 24.4 ml/m2 LAV(MOD-sp2): 41.8 ml EDV(MOD-sp4): 77.2 ml LAV(MOD-sp4): 41.1 ml EDV(sp4-el): 80.1 ml LVAs ap4: 14.3 cm2 LVLs ap4: 6.1 cm ESV(MOD-sp4): 29.5 ml ESV(sp4-el): 28.3 ml EF(MOD-sp4): 61.8 % EF(sp4-el): 64.7 % SV(sp4-el): 51.9 ml LA A4 area: 15.9 cm2 LA dimension(2D): 3.3 cm RA A4 area: 12.4 cm2 TAPSE: 1.7 cm Time Measurements MV dec time: 0.23 sec Doppler Measurements & Calculations MV E max max: 60.9 cm/sec Lat Peak E' Max: 6.8 cm/sec Med Peak E' Max: 5.5 cm/sec MV A max max: 98.1 cm/sec E/E' lat: 8.9 E/E' med: 11.0 MV E/A: 0.62 Ao V2 max: 177.9 cm/sec AI max max: 390.7 cm/sec LV V1 max: 81.9 cm/sec Ao max P.7 mmHg AI max P.1 mmHg LV V1 max P.7 mmHg AI dec slope: 261.2 cm/sec2 AI P1/2t: 438.2 msec PA V2 max: 62.8 cm/sec TR max max: 219.1 cm/sec TR max P.2 mmHg ECHO/Echo Complete Interpretation Summary The estimated ejection fraction is 55 %. No evidence for diastolic dysfunction. Mild (1+) mitral valve insufficiency. Mild (1+) aortic valve insufficiency. Ordering Physician: Rowan Mott Referring Physician: Rowan Mott Performed By: Violet Mooney RDCS
== END | disposition home or self-care (01) ==
LOC: CVS 12:32
PROVIDERS: PCP Internal Medicine; Referring Provider Internal Medicine; Visit Provider Internal Medicine
DX: R01.1 Cardiac murmur, unspecified (principal)
CPT/HCPCS: 93306; A4216

== ENCOUNTER → 2025-06-05 | Outpatient (CLI) | payer MEDICARE, OTHER, SELFPAY ==
[2025-06-05 13:39] LABS: Mucous, Urine 0 SEEN /hpf (<or=2+); Red Blood Cells-Urine 0 SEEN /hpf (0-5)
[2025-06-05 13:54] LABS: Color, Urine Yellow (Yellow); Glucose, Dipstick Normal (Normal); Ketone-Dipstick Negative (Negative); Leukocyte Esterase-Dipstick Negative /ul (Negative); Nitrite-Dipstick Negative (Negative); Occult Blood-Urine Negative /ul (Negative); Protein-Dipstick Negative (Negative); Specific Gravity, Urine 1.010 (1.002-1.030); Urine Bilirubin Dipstick Negative (Negative)
[2025-06-05 13:58] LABS: Hematocrit 38.2 % (37-47); Hemoglobin 12.6 g/dL (12.0-15.0); Immature Granulocytes Count 0.050 X10^3/uL (0.0-0.0); Mean Corp Hgb Conc 33.0 g/dL (32-36); Mean Corpuscular Volume 87.2 fL (81-99); Mean Platelet Vol. 11.1 fl (6.2-12.0); NRBC Flagged by Analyzer 0 % (0-5); Platelet Count 194 K/mm3 (150-450); RBC Distribution Width CV 14.6 % (11.6-14.6); RBC Distribution Width SD 46.6 fl (35.1-43.9); Red Blood Count 4.38 M/mm3 (4.2-5.4); White Blood Count 7.1 K/mm3 (4.4-11.0)
[2025-06-05 14:13] LABS: Squamous Epithelial Cells - UA 0-5 SEEN /hpf (5-10)
[2025-06-05 14:23] LABS: Creatinine, Urine (random) 84.30 mg/dL (28.00-217.00); Microalbumin,Random Urine < 12.0 mg/L (<20 mg/L)
[2025-06-05 14:24] LABS: AST(SGOT) 24 U/L (<=31); Alanine Aminotransfer ALT/SGPT 25 U/L (<=34); Albumin, Serum 4.5 g/dL (3.4-4.8); Alkaline Phosphatase 57 U/L (35-104); Anion Gap 10 (5-15); BUN 26 mg/dL (4-19); BUN/Creat Ratio 19.5 RATIO (10-20); Calcium,Total 9.5 mg/dL (7.6-11.0); Carbon Dioxide 29.9 mmol/L (21.0-32.0); Chloride 102 mmol/L (98-108); Globulin 2.3 g/dL (2.2-4.2); Glucose 202 mg/dL (70-99); Potassium 4.5 mmol/L (3.3-5.1)
== END | disposition home or self-care (01) ==
LOC: LABSPEC 12:34
PROVIDERS: PCP Internal Medicine; Referring Provider Internal Medicine; Visit Provider Internal Medicine
DX: I10 Essential (primary) hypertension (principal); E11.9 Type 2 diabetes mellitus without complications
CPT/HCPCS: 80053; 81001; 82043; 82570; 85025